=== PATIENT | female | born 1985 | race Caucasian/White ===

== ENCOUNTER 2022-07-22 13:51 | Outpatient (CLI) | payer BC, SELFPAY ==
--- NOTE | 2022-07-22 | CRLHL7_ITS ---
For Patients: As a result of the Cures Act, medical imaging exams and procedure reports are released immediately into your electronic medical record. You may view this report before your referring provider. If you have questions, please contact your health care provider. INDICATION: Dating and viability. LMP 05/27/2022. COMPARISON: None. TECHNIQUE: Real-time russell-scale imaging of the pelvis was performed. FINDINGS: Sonographic imaging demonstrates a single living intrauterine gestation. The embryo has a regular cardiac rate measuring 152 beats per minute. The embryo`s crown-rump length measurement of 1.1 cm corresponds to a gestational age of 7 weeks 1 day with a sonographic due date of 03/09/2023. There is a normal-appearing yolk sac. The placenta has not yet developed. No evidence of a perigestational hemorrhage. The cervix appears closed. section scar in the lower uterine segment. The right ovary measures 3.7 x 2.1 x 2.7 cm and the left ovary measures 3.5 x 2.2 x 2.5 cm. Corpus luteum in the left ovary. No free fluid in the cul-de-sac. IMPRESSION: 1. Single living intrauterine gestation with crown rump length 1.1 cm which corresponds to a gestational age of 7 weeks 1 day with a sonographic due date of 03/09/2023. 2. The clinical gestational age by LMP is 8 weeks 0 days. Dictated by Mary Fuller MD @ 07/22/2022 8:20:48 PM (Electronically Signed)
== END 2022-07-22 13:52 | disposition home or self-care (01) ==
LOC: US 13:52
PROVIDERS: Visit Provider Advanced Practice Midwife
DX: Z34.91 Encounter for supervision of normal pregnancy, unspecified, first trimester (principal); Z3A.01 Less than 8 weeks gestation of pregnancy
CPT/HCPCS: 76817; 86592; 86703; 86762; 86787; 86803; 86850; 86900; 86901; 87086; 87340

== ENCOUNTER 2022-10-22 12:48 | Outpatient (CLI) | payer BC, SELFPAY ==
--- NOTE | 2022-10-22 13:00 | CRLHL7_ITS ---
For Patients: As a result of the Century Cures Act, medical imaging exams and procedure reports are released immediately into your electronic medical record. You may view this report before your referring provider. If you have questions, please contact your health care provider. INDICATION: Evaluate anatomy. COMPARISON: 07/22/2022 TECHNIQUE: Real time russell scale imaging of the fetus was performed as well as color Doppler analysis of the umbilical vessels. FINDINGS: Sonographic imaging demonstrates a single living intrauterine gestation. Fetus demonstrates a regular cardiac rate of 148 beats per minute. Fetus has a breech position. The placenta lies posteriorly without evidence of placenta previa. The edge of the placenta is located 6.7 cm from the internal cervical os. Amniotic fluid volume appears normal. Single deepest vertical pocket: 4.0 cm. The cervix is closed and measures 4.6 cm in length. The composite ultrasound gestational age is calculated at 20 weeks 4 days with an estimated sonographic due date of 03/07/2023. The estimated weight is 374 grams which lies at the 71st %. The following biometric measurements were obtained: Biparietal diameter: 4.8 cm/20 weeks 3 days 59th% Head circumference: 17.9 cm/20 weeks 2 days 45th% Abdominal circumference: 15.7 cm/20 weeks 6 days 64th% Femur length: 3.4 cm/20 weeks 5 days 58th% The HC/AC ratio measures: 1.14 range (1.07-1.25) On anatomic survey, there is a normal appearance of the cerebral ventricles, cavum septi pellucidi, cisterna magna and cerebellum. The nose, lips, and facial profile appear normal. The cervical, thoracic and lumbar spine are well visualized and appear normal. There incomplete visualization of the four-chamber heart and outflow tracts due to position. The diaphragm and stomach appear normal. The kidneys and bladder also appear normal. There is a normal three-vessel cord and cord insertion site. The four extremities appear normal. IMPRESSION: Concordance of clinical and sonographic dating. Incomplete visualization of the four-chamber heart and outflow tracts. Follow-up recommended. Remainder of the anatomic survey is normal. Dictated by Marek Ventura MD @ 10/22/2022 2:08:37 PM (Electronically Signed)
== END 2022-10-22 12:49 | disposition home or self-care (01) ==
LOC: US 12:50
PROVIDERS: Visit Provider Obstetrics & Gynecology
DX: Z34.92 Encounter for supervision of normal pregnancy, unspecified, second trimester (principal); Z3A.20 20 weeks gestation of pregnancy
CPT/HCPCS: 76805

== ENCOUNTER 2022-11-22 12:59 | Outpatient (CLI) | payer BC, SELFPAY ==
--- NOTE | 2022-11-22 13:00 | CRLHL7_ITS ---
For Patients: As a result of the Century Cures Act, medical imaging exams and procedure reports are released immediately into your electronic medical record. You may view this report before your referring provider. If you have questions, please contact your health care provider. INDICATION: heart view not obtained on anatomy scan. COMPARISON: OB ultrasound 10/22/2022. TECHNIQUE: Ultrasound OB pelvis with real time russell scale imaging and color Doppler analysis. FINDINGS: Sonographic imaging demonstrates a single living intrauterine gestation. The fetus has a regular cardiac rate of 165 beats per minute. The fetus has a cephalic orientation. The placenta lies posteriorly without evidence of placenta previa. Amniotic fluid volume appears normal with single deepest pocket measuring 2.6 cm. The composite ultrasound gestational age is calculated at 25 weeks 3 days with an estimated sonographic due date of 03/04/2023. The estimated weight is 816 grams which lies at the 75th percentile. The following biometric measurements were obtained: Biparietal diameter: 6.20 cm (25 weeks 1 day) (60th percentile) Head circumference: 23.36 cm (25 weeks 3 days) (55th percentile) Abdominal circumference: 21.49 cm (26 weeks 0 days) (79th percentile) Femur length: 4.50 cm (24 weeks 6 days) (42nd percentile) The HC/AC ratio measures: 1.09 (range 1.04-1.22) There is a normal appearance of the four-chamber heart and left and right ventricular outflow tracts on today`s exam. IMPRESSION: 1. Single living intrauterine gestation in cephalic position with heart rate 165 beats per minute. 2. Ultrasound gestational age 25 weeks 3 days with sonographic due date 03/04/2023. This is concordant with the clinical gestational age of 24 weeks 5 days. 3. Normal appearance of the four-chamber heart and left and right ventricular outflow tracts. Dictated by Mary Fuller MD @ 11/22/2022 10:34:14 PM (Electronically Signed)
== END 2022-11-22 13:00 | disposition home or self-care (01) ==
PROVIDERS: Visit Provider Obstetrics & Gynecology
DX: Z34.92 Encounter for supervision of normal pregnancy, unspecified, second trimester (principal); Z3A.25 25 weeks gestation of pregnancy
CPT/HCPCS: 76816

== ENCOUNTER 2022-12-15 14:48 | Outpatient (CLI) | payer BC, SELFPAY | END 2022-12-15 14:49 | disposition home or self-care (01) | LOC: NFLDREF 14:49 | PROVIDERS: Visit Provider Obstetrics & Gynecology | DX: O09.523 Supervision of elderly multigravida, third trimester (principal); O26.899 Other specified pregnancy related conditions, unspecified trimester; Z67.91 Unspecified blood type, Rh negative; Z3A.28 28 weeks gestation of pregnancy | CPT/HCPCS: 85461; 86592; 86850; J2791 ==

== ENCOUNTER 2023-02-09 12:48 | Outpatient (CLI) | payer BC, SELFPAY ==
--- NOTE | 2023-02-09 13:00 | CRLHL7_ITS ---
For Patients: As a result of the Century Cures Act, medical imaging exams and procedure reports are released immediately into your electronic medical record. You may view this report before your referring provider. If you have questions, please contact your health care provider. INDICATION: Third trimester scan, evaluate growth. Check growth, fluid and position. COMPARISON: 11/22/2022 TECHNIQUE: Real time russell scale imaging of the fetus was performed. FINDINGS: Sonographic imaging demonstrates a single living intrauterine gestation. Fetus demonstrates a regular cardiac rate of 129 beats per minute. Fetus has a vertex position. The placenta lies vertex. Amniotic fluid volume appears normal and there is a single deepest vertical pocket: 5.2 cm. SAMSON 13.8 cm. The estimated weight is 3269gm which lies at the 90th %. On the prior OB ultrasound exam dated 11/22/2022 the estimated weight was at the 75th%. BPD 83rd percentile. HC 39th percentile. AC greater than 97th percentile. FL 43rd percentile. The HC/AC ratio measures 0.93 range (0.92-1.05). IMPRESSION: Sonographic gestational age 37 weeks 1 day and sonographic due date of 03/01/2023. Sonographic age is 8 days ahead of the clinical age. Estimated weight 90th percentile. Abdominal circumference greater than 97th percentile. Vertex position. SAMSON 13.8 cm. Dictated by Marek Ventura MD @ 02/10/2023 9:51:04 AM (Electronically Signed)
== END 2023-02-09 12:49 | disposition home or self-care (01) ==
LOC: US 12:48
PROVIDERS: Visit Provider Obstetrics & Gynecology
DX: O09.523 Supervision of elderly multigravida, third trimester (principal); Z3A.37 37 weeks gestation of pregnancy
CPT/HCPCS: 76816; 87081; 87653

== ENCOUNTER 2024-04-03 11:17 | Outpatient (CLI) | payer BC, SELFPAY ==
--- NOTE | 2024-04-03 11:15 | CRLHL7_ITS ---
For Patients: As a result of the Century Cures Act, medical imaging exams and procedure reports are released immediately into your electronic medical record. You may view this report before your referring provider. If you have questions, please contact your health care provider. Indication: dating, viability LMP: 01/28/2024 Technique: Real-time sonographic images of the pelvis were obtained transvaginally using grayscale, color, and Doppler imaging. Comparison: None. Findings: Uterus: Echogenic area is seen at the area of prior section measuring roughly 1.5 x 0.8 x 1.9 centimeter. Gestational sac: Mean sac diameter measures 0.4 centimeter, compatible with an average ultrasound age of 5 weeks 1 day. pole: Not visualized. Yolk sac: Not visualized. heart rate: Not visualized. Right ovary: Size: 2.9 x 2.4 x 2.3 centimeter. Appearance: Normal morphology. No masses. Left ovary: Size: 3.2 x 1.9 x 2.4 centimeter. Appearance: Normal morphology. Hemorrhagic cyst measuring 1.8 x 1.1 x 1.4 centimeter. Bladder: Visualized bladder is normal. Other: No free fluid. Impression: 1. Small hypoechoic structure located within the endometrial canal, consistent with double decidual sac sign. However, no yolk sac or embryo is visualized. of unknown location that is most likely intrauterine. Ectopic , while not excluded, is not likely. Recommend follow-up ultrasound examination in 7-10 days, or as clinically warranted. 2. Echogenic area at the site of prior section measuring roughly 1.5 x 0.8 x 1.9 centimeter. This is nonspecific and may represent scarring. Recommend attention on follow-up. Dictated by Marck Lovett MD @ 04/03/2024 1:28:45 PM (Electronically Signed)
== END 2024-04-03 11:18 | disposition home or self-care (01) ==
LOC: US 11:17
PROVIDERS: Visit Provider Physician Assistant
DX: O20.9 Hemorrhage in early pregnancy, unspecified (principal)
CPT/HCPCS: 76817; 84702; 86850

== ENCOUNTER 2024-04-03 11:53 | Outpatient (CLI) | payer BC, SELFPAY | END 2024-04-03 11:54 | disposition home or self-care (01) | PROVIDERS: Visit Provider Physician Assistant | DX: O20.9 Hemorrhage in early pregnancy, unspecified (principal); O09.521 Supervision of elderly multigravida, first trimester; Z3A.09 9 weeks gestation of pregnancy | CPT/HCPCS: 84702; 86850; J2791 ==

== ENCOUNTER 2024-04-04 08:58 | Emergency (ER) | payer BC, SELFPAY ==
[2024-04-04 09:06] VITALS: BP 118/79; PULSE 70; RESP 18; TEMP 35.8; O2SAT 99; BMI 32.9
[2024-04-04 09:41] VITALS: BP 108/78; PULSE 60; O2SAT 98
[2024-04-04 09:42] VITALS: PULSE 63; O2SAT 97
[2024-04-04 09:45] VITALS: PULSE 56; O2SAT 98
--- NOTE | 2024-04-04 09:58 | ED.GENADULT ---
HPI - General Adult General Chief complaint: Vaginal Bleeding Stated complaint: Heavy bleeding miscarriage Time Seen by Provider: 04/04/24 09:52 History of Present Illness HPI narrative: This 38-year-old female is 9 weeks and is having a miscarriage. She was seen in the OB clinic yesterday and had an ultrasound done. She is aware that a miscarriage is forthcoming. She comes in today because of rather heavy bleeding and some symptoms of lightheadedness. She arrives here with normal vital signs and does not have tachycardia or hypotension. She is Rh negative and did get a dose of RhoGAM yesterday. Related Data Home Medications ?Medication ?Instructions ?Recorded ?Confirmed prenat.vits,balbir,[id number]-[id number] 1 tab PO QDAY 07/22/22 04/13/23 Allergies Allergy/AdvReac Type Severity Reaction Status Date / Time No Known Drug Allergies Allergy Verified 04/04/24 09:13 Review of Systems Status of ROS: Reports: 10 or more systems reviewed and unremarkable except as noted in History and below Narrative: Constitutional: No fevers, no weight gain or loss. Eyes: No discharge. No vision changes. HENT: No congestion, no sore throat, no ear pain. Cardiovascular: No chest pain, no palpitations. Respiratory: No shortness of breath, no wheezes, no cough. Gastrointestinal: No vomiting, no diarrhea. Crampy abdominal pain from miscarriage. Genitourinary: No dysuria, no hematuria. Musculoskeletal: Normal range of motion. Skin: No rashes, no pruritis. Neurological: No dizziness, weakness, sensory change, speech change. Endo/Heme/Allergies: No bruising or bleeding. No polydipsia. Pysch: no suicidality, no anxiety, no insomnia. All other systems reviewed and are negative. [facility] Medical History (Updated 04/04/24 @ 11:42 by Chet Garvin MD) Rh negative status during ?O26.899 - Other specified related conditions, unspecified trimester (ICD-10) ?Z67.91 - Unspecified blood type, rh negative (ICD-10) Anemia ?D64.9 - Anemia, unspecified (ICD-10) bleeding ?O72.1 - Other immediate hemorrhage (ICD-10) Bleeding in early ?O20.9 - Hemorrhage in early , unspecified (ICD-10) Class 1 obesity ?E66.9 - Obesity, unspecified (ICD-10) GERD (gastroesophageal reflux disease) ?K21.9 - Gastro-esophageal reflux disease without esophagitis (ICD-10) Hyperemesis gravidarum ?O21.0 - Mild hyperemesis gravidarum (ICD-10) Cholecystitis ?K81.9 - Cholecystitis, unspecified (ICD-10) Polycystic ovaries ?E28.2 - Polycystic ovarian syndrome (ICD-10) Migraine headache ?G43.909 - Migraine, unspecified, not intractable, without status migrainosus (ICD-10) Menorrhagia with irregular cycle ?N92.1 - Excessive and frequent menstruation with irregular cycle (ICD-10) Irregular menstrual cycle ?N92.6 - Irregular menstruation, unspecified (ICD-10) History of varicella ?Z86.19 - Personal history of other infectious and parasitic diseases (ICD-10) History of spontaneous (12/16/15) ?Z87.59 - Personal history of other complications of , childbirth and the puerperium (ICD-10) Anovulation ?N97.0 - Female infertility associated with anovulation (ICD-10) Surgical History (Updated 03/05/23 @ 12:00 by Jessy Palacios MD) History of laparoscopic cholecystectomy ?Z90.49 - Acquired absence of other specified parts of digestive tract (ICD-10) History of cholecystectomy ?Z90.49 - Acquired absence of other specified parts of digestive tract (ICD-10) Status post repeat low transverse section ?Z98.891 - History of uterine scar from previous surgery (ICD-10) Status post repeat low transverse section (09/2021) ?Z98.891 - History of uterine scar from previous surgery (ICD-10) Status post primary low transverse section ?Z98.891 - History of uterine scar from previous surgery (ICD-10) History of tonsillectomy ?Z90.89 - Acquired absence of other organs (ICD-10) History of third molar tooth extraction ?K08.409 - Partial loss of teeth, unspecified cause, unspecified class (ICD-10) History of dilation and curettage (2015) ?Z98.890 - Other specified postprocedural states (ICD-10) Family History Mother High cholesterol Father High cholesterol Sister Seizure disorder Social History (Updated 04/03/24 @ 13:44 by Jacy Estrada PA-C) Narrative: Nasp-vb-cnzo mom. . Three children Smoking Status: Never smoker Do you use any of these nicotine containing products: None How often do you have a drink containing alcohol: never How often do you have six or more drinks on one occasion: Never AUDIT-C Alcohol total score: 0 Non-prescribed substance use: denies use Little interest or pleasure in doing things: not at all Feeling down, depressed, or hopeless: several days Exam Narrative: Exam Narrative: Constitutional: Well-developed, well-nourished, no acute distress. HEENT: Normocephalic, atraumatic. Neck: Normal range of motion. Nontender. Supple. Heart: Regular. No murmurs. Normal rate. Intact distal pulses. Lungs: Clear to auscultation. No chest discomfort. No wheezes, rhonchi, or rales. Abdomen: Normal bowel sounds. No rebound tenderness. Genitalia: Deferred. Back: No midline tenderness. Normal range of motion. Extremities: Normal range of motion. No injury. Skin: Intact. No rash. Warm. No erythema or pallor. Neurologic: No altered sensation. No weakness. Alert and oriented. Psychiatric: No suicidality. No anxiety or depression. No insomnia. Nursing notes and vitals signs are reviewed. Const: Vital Signs, click to edit/add: Vital Signs - 24 hr 04/04/24 09:06 04/04/24 09:41 04/04/24 09:42 Temperature 96.5 F L Pulse Rate 60 63 Pulse Rate [Right Pulse Oximeter] 70 Respiratory Rate 18 Blood Pressure 108/78 Blood Pressure [Le ft Upper Arm] 118/79 Pulse Oximetry 99 98 97 Oxygen Delivery Me thod Room Air 04/04/24 09:45 04/04/24 10:00 Temperature Pulse Rate 56 L 88 Pulse Rate [Right Pulse Oximeter] Respiratory Rate Blood Pressure Blood Pressure [Le ft Upper Arm] Pulse Oximetry 98 97 Oxygen Delivery Me thod Course Vital Signs Vital signs: Initial Vital Signs Temperature 96.5 F L 04/04/24 09:06 Temperature Source Temporal Artery Scan 04/04/24 09:06 Pulse Rate 70 04/04/24 09:06 Pulse Rhythm Regular 04/04/24 09:06 Respiratory Rate 18 04/04/24 09:06 Blood Pressure 118/79 04/04/24 09:06 Blood Pressure Mean 92 04/04/24 09:06 Blood Pressure Position Supine 04/04/24 09:06 Pulse Oximetry 99 04/04/24 09:06 Oxygen Delivery Method Room Air 04/04/24 09:06 Vital Signs Temperature 96.5 F L 04/04/24 09:06 Pulse Rate 70 04/04/24 09:06 Respiratory Rate 18 04/04/24 09:06 Blood Pressure 118/79 04/04/24 09:06 Pulse Oximetry 99 04/04/24 09:06 Oxygen Delivery Method Room Air 04/04/24 09:06 Temperature 96.5 F L 04/04/24 09:06 Pulse Rate 88 04/04/24 10:00 Respiratory Rate 18 04/04/24 09:06 Blood Pressure 108/78 04/04/24 09:41 Pulse Oximetry 97 04/04/24 10:00 Oxygen Delivery Method Room Air 04/04/24 09:06 Medications Administered Medications: Discontinued Medications Generic Name Dose Route Start Last Admin Trade Name Freq PRN Reason Stop Dose Admin Sodium Chloride 1,000 mls @ 1,000 mls/hr 04/04/24 10:00 04/04/24 11:07 0.9 % Sodium Chloride 1000 Ml IV 04/04/24 10:59 Infused .Q1H NORBERT Infusion Medical Decision Making MDM Narrative Medical decision making narrative: This patient comes in as she is undergoing a miscarriage. She had some feelings of lightheadedness with more active bleeding prior to arrival. She arrives with normal vital signs. She is Rh negative and did have a RhoGAM injection yesterday. An IV was established where she received a L of normal saline. She states that she is feeling much better. Her lab results returned with reassuring findings. In particular her hemoglobin returns at 11.9. She is okay to be discharged home and has ongoing follow-up arrangements with her OBGYN physician. Lab Data Labs: Lab Results 04/04/24 Range/Units 10:15 WBC 9.74 (4.50-11.00) K/uL RBC 4.15 (4.00-5.20) m/uL Hgb 11.9 L (12.0-16.0) gm/dL Hct 36.8 (33.0-51.0) % MCV 89 (80-100) fL MCH 29 (26-34) pg MCHC 32 (32-36) gm/dL RDW Coeff of Sandrine 13.8 (11.5-15.5) % Plt Count 191 (140-440) K/uL Neut % (Auto) 79.0 H (42.0-72.0) % Lymph % (Auto) 14.6 L (20-44) % [place]irie % (Auto) 4.8 (0.0-11.0) % Eos % (Auto) 1.4 (0.0-7.0) % Baso % (Auto) 0.1 (0.0-3.0) % Neut # (Auto) 7.70 H (1.7-7.0) K/uL Lymph # (Auto) 1.40 (0.90-2.90) K/uL [place] # (Auto) 0.50 (0.00-0.90) K/UL Eos # (Auto) 0.14 (0.00-0.50) K/uL Baso # (Auto) 0.01 (0.00-0.30) K/uL Abs Immat Gran (auto) 0.01 (0.00-0.30) K/uL Imm/Tot Granulo (auto) 0.1 % Sodium 137 (135-149) mmol/L Potassium 4.1 (3.6-5.1) mmol/L Chloride 106 (96-114) mmol/L Carbon Dioxide 22 (20-32) mmol/L Anion Gap 9 (7-15) mEq/L BUN 13 (5-24) mg/dL Creatinine 0.7 (0.5-1.5) mg/dL Estimated Creat Clear 91.02 Estimated GFR 114 ml/min Glucose 114 (60-115) mg/dL Calcium 8.7 (8.4-10.6) mg/dL Discharge Plan Discharge Clinical Impression: Miscarriage Patient Disposition: Home, Self-Care Condition: Stable Additional Instructions: Take plenty of fluids and use [id number] medicines as needed and directed. Follow up with OBGYN clinic or return if symptoms are recurrent or worsening. Prescriptions: No Action prenat.vits,balbir,med-kxnj-pmjdo Tablet 1 tab PO QDAY Follow Up/Referrals: Provider,Not a Local [Primary Care Provider] - Stand Alone Forms: [employer] Instructions
[2024-04-04 10:00] VITALS: PULSE 88; O2SAT 97
[2024-04-04] MEDS: 0.9 % SODIUM CHLORIDE 1000 ml 1,000 ML IV (10:10)
[2024-04-04 10:18] LABS: Basophils Absolute Auto 0.01 K/uL (0.00-0.30); Basophils Percent Auto 0.1 % (0.0-3.0); Eosinophils Absolute Auto 0.14 K/uL (0.00-0.50); Eosinophils Percent Auto 1.4 % (0.0-7.0); Hematocrit 36.8 % (33.0-51.0); Hemoglobin* 11.9 gm/dL (12.0-16.0); Immature Granulocytes Abs Auto 0.01 K/uL (0.00-0.30); Immature Granulocytes Pct Auto 0.1 %; Lymphocytes Percent Auto 14.6 % (20-44); Mean Corpuscular HGB Conc 32 gm/dL (32-36); Mean Corpuscular Hemoglobin 29 pg (26-34); Mean Corpuscular Volume 89 fL (80-100); Monocytes Percent Auto 4.8 % (0.0-11.0); Platelet Count* 191 K/uL (140-440); RDW Coefficient of Variation % 13.8 % (11.5-15.5); Red Blood Count 4.15 m/uL (4.00-5.20); White Blood Count* 9.74 K/uL (4.50-11.00)
[2024-04-04 10:25] LABS: Slide Review Reflex No
[2024-04-04 11:18] LABS: Chloride* 106 mmol/L (96-114); Potassium* 4.1 mmol/L (3.6-5.1); Sodium* 137 mmol/L (135-149)
[2024-04-04 11:21] LABS: Anion Gap 9 mEq/L (7-15); Carbon Dioxide* 22 mmol/L (20-32); Creatinine* 0.7 mg/dL (0.5-1.5); Est. Creatinine Clearance* 91.02; Estimated Glomerular Filt Rate 114 ml/min
[2024-04-04 11:22] LABS: Blood Urea Nitrogen* 13 mg/dL (5-24); Calcium* 8.7 mg/dL (8.4-10.6); Glucose* 114 mg/dL (60-115)
== END 2024-04-04 11:57 | disposition home or self-care (01) ==
PROVIDERS: Emergency Provider Emergency Medicine Emergency Medical Services
DX: O03.9 Complete or unspecified spontaneous abortion without complication (principal)
CPT/HCPCS: 36415; 80048; 85025; 99283; 99284; J7030

== ENCOUNTER 2024-04-05 13:52 | Outpatient (CLI) | payer BC, SELFPAY | END 2024-04-05 13:53 | disposition home or self-care (01) | LOC: NFLDREF 04-06 15:01 | PROVIDERS: Visit Provider Physician Assistant | DX: O20.9 Hemorrhage in early pregnancy, unspecified (principal) | CPT/HCPCS: 84702 ==

== ENCOUNTER 2024-04-06 07:58 | Outpatient (CLI) | payer BC, SELFPAY ==
--- NOTE | 2024-04-06 08:00 | CRLHL7_ITS ---
For Patients: As a result of the Century Cures Act, medical imaging exams and procedure reports are released immediately into your electronic medical record. You may view this report before your referring provider. If you have questions, please contact your health care provider. INDICATION: Bleeding in early COMPARISON: 04/03/2024 TECHNIQUE: Mcpherson-scale and color Doppler of the gravid uterus from a transvaginal approach. Mcpherson-scale and color Doppler of the ovaries and adnexa from a transvaginal approach. FINDINGS: Estimated gestational age: 9 weeks 6 days normal uterine size and position. No gestational sac. Thickened heterogeneously hyperechoic endometrium measures 1.6 centimeters. No endometrial mass or vascularity. Avascular blood clot in the lower uterine segment upper endocervical canal that measures 3.9 x 1.8 x 3.2 centimeters. No embryonic or parts identified. The right ovary measures 2.5 x 2.0 x 1.9 centimeters. The left ovary measures 2.5 x 2.1 x 1.5 centimeters. No ovarian cyst or mass. Normal color Doppler flow in both ovaries. No pelvic free fluid. IMPRESSION: Failed 1st trimester with miscarriage in progress. Dictated by Estefany Dillard MD @ 04/06/2024 9:12:57 AM (Electronically Signed)
== END 2024-04-06 07:59 | disposition home or self-care (01) ==
LOC: US 07:59
PROVIDERS: Visit Provider Physician Assistant
DX: O20.9 Hemorrhage in early pregnancy, unspecified (principal); O36.80X0 Pregnancy with inconclusive fetal viability, not applicable or unspecified
CPT/HCPCS: 76817

== ENCOUNTER 2024-04-11 16:08 | Outpatient (CLI) | payer BC, SELFPAY | END 2024-04-11 16:09 | disposition home or self-care (01) | LOC: NFLDREF 04-13 05:50 | PROVIDERS: Visit Provider Obstetrics & Gynecology | DX: O03.9 Complete or unspecified spontaneous abortion without complication (principal) | CPT/HCPCS: 84702 ==

== ENCOUNTER 2024-08-24 07:16 | Outpatient (CLI) | payer BC, SELFPAY ==
--- NOTE | 2024-08-24 07:15 | CRLHL7_ITS ---
For Patients: As a result of the Century Cures Act, medical imaging exams and procedure reports are released immediately into your electronic medical record. You may view this report before your referring provider. If you have questions, please contact your health care provider. INDICATION: 38 year-old female. First trimester scan, establish dates and viability. COMPARISON: None. TECHNIQUE: Real-time russell-scale imaging of the pelvis was performed. FINDINGS: Sonographic imaging demonstrates a single living intrauterine gestation. The embryo demonstrates a regular cardiac rate measuring 114 beats per minute. The embryo`s crown-rump length measurement of 0.3 cm corresponds to a gestational age of 6 weeks 0 days with a sonographic due date of April 19, 2025. There is a normal-appearing yolk sac measuring up to 2.9 mm. There are no gross abnormalities noted within the embryo at this early state of development. The placenta has not yet developed. The gestational sac has a normal appearance. There is a curvilinear hypoechoic collection along the anterolateral margin of the gestational sac potentially subchorionic hemorrhage measuring 2.7 x 0.8 x 1.1 cm. The amount of fluid within the sac appears appropriate for gestational age. The cervix is closed. The myometrium appears normal. The ovaries are of normal size. The right ovary measures 2.7 x 2.5 x 1.8 cm. The left ovary measures 4.6 x 2.0 x 2.1 cm and contains a corpus luteum cyst of measuring 1.6 x 1.4 x 1.9 cm. There are no suspicious fluid collections noted in the cul-de-sac. IMPRESSION: Normal first trimester OB ultrasound exam. Gestational age calculated at 6 weeks 0 days with a sonographic due date of April 19, 2025. The heart rate is somewhat low at 114 beats per minute but this may simply reflect the early stage of and there is presumably a subchorionic hemorrhage (the patient reportedly stated to the construction controller the she had spotting). Consider a short interval follow-up ultrasound to assess for progression or regression of these findings. Dictated by Vic Pan MD @ 08/24/2024 4:15:02 PM (Electronically Signed)
== END 2024-08-24 07:17 | disposition home or self-care (01) ==
LOC: US 07:17
PROVIDERS: Visit Provider Physician Assistant
DX: O20.9 Hemorrhage in early pregnancy, unspecified (principal); O26.891 Other specified pregnancy related conditions, first trimester; Z3A.01 Less than 8 weeks gestation of pregnancy
CPT/HCPCS: 76817; J2791

== ENCOUNTER 2024-08-24 08:46 | Outpatient (CLI) | payer BC, SELFPAY | END 2024-08-24 08:47 | disposition home or self-care (01) | LOC: NFLDREF 08:47 | PROVIDERS: Visit Provider Physician Assistant | DX: O20.9 Hemorrhage in early pregnancy, unspecified (principal); O26.891 Other specified pregnancy related conditions, first trimester; Z67.41 Type O blood, Rh negative; Z3A.01 Less than 8 weeks gestation of pregnancy | CPT/HCPCS: J2791 ==

== ENCOUNTER 2024-08-31 15:45 | Outpatient (CLI) | payer BC, SELFPAY ==
--- NOTE | 2024-08-31 15:45 | CRLHL7_ITS ---
For Patients: As a result of the Century Cures Act, medical imaging exams and procedure reports are released immediately into your electronic medical record. You may view this report before your referring provider. If you have questions, please contact your health care provider. INDICATION: Follow-up viability COMPARISON: None. TECHNIQUE: Real-time russell-scale imaging of the pelvis was performed. FINDINGS: Sonographic imaging demonstrates a single living intrauterine gestation. The embryo demonstrates a regular cardiac rate measuring 144 beats per minute. The embryo`s crown-rump length measurement of 1.3 cm corresponds to a gestational age of 7 weeks 3 days with a sonographic due date of 04/16/2025. There is a normal-appearing yolk sac. There are no gross abnormalities noted within the embryo at this early state of development. The gestational sac has a normal appearance. There is no evidence of a perigestational hemorrhage. The amount of fluid within the sac appears appropriate for gestational age. The cervix is closed. The myometrium appears normal. The ovaries are of normal size. Corpus luteal cyst left ovary. Simple cyst associated with the left ovary is present measuring 1.3 cm. There are no suspicious fluid collections noted in the cul-de-sac. IMPRESSION: Single living intrauterine with sonographic gestational age 7 weeks 3 days and sonographic due date of 04/16/2025. Dictated by Marek Ventura MD @ 08/31/2024 8:27:12 PM (Electronically Signed)
== END 2024-08-31 15:46 | disposition home or self-care (01) ==
LOC: US 15:46
PROVIDERS: Visit Provider Physician Assistant
DX: Z34.91 Encounter for supervision of normal pregnancy, unspecified, first trimester (principal); Z3A.01 Less than 8 weeks gestation of pregnancy
CPT/HCPCS: 76817

== ENCOUNTER 2024-09-03 17:09 | Outpatient (CLI) | payer BC, SELFPAY ==
[2024-09-04 00:21] LABS: Chlamydia DNA Amplified* NOT DETECTED (No Detected); GC DNA Amplified* NOT DETECTED (No Detected)
[2024-09-06 04:38] LABS: HPV Source Cervix; HPV, High Risk by TMA Not Detected
== END 2024-09-03 17:10 | disposition home or self-care (01) ==
PROVIDERS: Visit Provider Physician Assistant
DX: Z34.91 Encounter for supervision of normal pregnancy, unspecified, first trimester (principal); Z12.4 Encounter for screening for malignant neoplasm of cervix; Z3A.01 Less than 8 weeks gestation of pregnancy
CPT/HCPCS: 83021; 83036; 86592; 86703; 86704; 86706; 86762; 86787; 86803; 86850; 86870; 86880; 86900; 86901; 87086; 87340; 87491; 87591; 87624; 87625; 88141; 88142

== ENCOUNTER 2024-11-28 09:16 | Outpatient (CLI) | payer BC, SELFPAY | END 2024-11-28 09:17 | disposition home or self-care (01) | LOC: US 09:16 | PROVIDERS: Visit Provider Obstetrics & Gynecology | DX: O09.522 Supervision of elderly multigravida, second trimester (principal); Z3A.19 19 weeks gestation of pregnancy | CPT/HCPCS: 76811 ==

== ENCOUNTER 2024-12-26 13:36 | Outpatient (CLI) | payer BC, SELFPAY | END 2024-12-26 13:37 | disposition home or self-care (01) | LOC: US 13:37 | PROVIDERS: Visit Provider Obstetrics & Gynecology | DX: Z34.92 Encounter for supervision of normal pregnancy, unspecified, second trimester (principal); Z3A.23 23 weeks gestation of pregnancy | CPT/HCPCS: 76816 ==

== ENCOUNTER 2025-01-25 09:48 | Outpatient (CLI) | payer BC, SELFPAY | END 2025-01-25 09:49 | disposition home or self-care (01) | PROVIDERS: Visit Provider Obstetrics & Gynecology | DX: O99.013 Anemia complicating pregnancy, third trimester (principal); Z3A.28 28 weeks gestation of pregnancy | CPT/HCPCS: 82728; 86592; 86850 ==

== ENCOUNTER 2025-02-01 08:30 | Outpatient (CLI) | payer BC, SELFPAY | END 2025-02-01 08:31 | disposition home or self-care (01) | LOC: NFLDREF 14:15 | PROVIDERS: Visit Provider Obstetrics & Gynecology | DX: R73.09 Other abnormal glucose (principal) | CPT/HCPCS: 82951; 82952 ==

== ENCOUNTER 2025-02-28 11:00 | Outpatient (RCR) | payer BC, SELFPAY ==
--- NOTE | 2025-01-31 14:46 | ONC.NURNOTE ---
Diagnosis: Iron Deficiency Anemia in
--- NOTE | 2025-02-01 11:17 | URNOTE ---
Prior auth is not required for [facility] ([id number]) per website.
[2025-02-14 09:31] VITALS: BP 129/80; PULSE 97; RESP 18; TEMP 36.6; O2SAT 97
[2025-02-14] MEDS: IRON SUCROSE COMPLEX 200 MG in 0.9 % SODIUM CHLORIDE 100 ml 100 ML 440 MG IVPB (10:04)
[2025-02-14] MEDS: SODIUM CHLORIDE 0.9 % (FLUSH) 10 ML SYRINGE IVF (10:22)
[2025-02-14 10:25] VITALS: BP 116/67; PULSE 95; RESP 18; TEMP 36.8; O2SAT 96
[2025-02-19 11:31] VITALS: BP 123/77; PULSE 105; RESP 18; TEMP 35.8; O2SAT 96
[2025-02-19] MEDS: SODIUM CHLORIDE 0.9 % (FLUSH) 10 ML SYRINGE IVF (12:22)
[2025-02-19] MEDS: IRON SUCROSE COMPLEX 200 MG in 0.9 % SODIUM CHLORIDE 100 ml 100 ML 440 MG IVPB (12:22)
[2025-02-19 12:45] VITALS: BP 100/65; PULSE 101; RESP 16; TEMP 36.6; O2SAT 96
[2025-02-19 13:10] VITALS: BP 113/74; PULSE 97; RESP 16; TEMP 36.3; O2SAT 97
[2025-02-22 11:00] VITALS: BP 113/74; PULSE 100; RESP 14; TEMP 36.1; O2SAT 97
[2025-02-22] MEDS: SODIUM CHLORIDE 0.9 % (FLUSH) 10 ML SYRINGE IVF ×2 (11:25→11:44)
[2025-02-22] MEDS: IRON SUCROSE COMPLEX 200 MG in 0.9 % SODIUM CHLORIDE 100 ml 100 ML 440 MG IVPB (11:27)
[2025-02-22 12:15] VITALS: BP 107/71; PULSE 95; RESP 18; O2SAT 96
[2025-02-26 11:05] VITALS: BP 102/66; PULSE 102; RESP 18; TEMP 36.3; O2SAT 96
[2025-02-26] MEDS: IRON SUCROSE COMPLEX 200 MG in 0.9 % SODIUM CHLORIDE 100 ml 100 ML 440 MG IVPB (11:23)
[2025-02-26] MEDS: SODIUM CHLORIDE 0.9 % (FLUSH) 10 ML SYRINGE IVF (11:23)
[2025-02-26 11:46] VITALS: BP 109/68; PULSE 95; RESP 16; TEMP 36.2; O2SAT 94
[2025-02-26 12:15] VITALS: BP 107/69; PULSE 92; RESP 18; O2SAT 96
[2025-02-28 11:03] VITALS: BP 114/75; PULSE 93; RESP 16; TEMP 36.6; O2SAT 97
[2025-02-28] MEDS: IRON SUCROSE COMPLEX 200 MG in 0.9 % SODIUM CHLORIDE 100 ml 100 ML 440 MG IVPB (11:23)
[2025-02-28] MEDS: SODIUM CHLORIDE 0.9 % (FLUSH) 10 ML SYRINGE IVF (11:23)
[2025-02-28 11:42] VITALS: BP 103/65; PULSE 96; RESP 16; TEMP 36.8; O2SAT 95
[2025-02-28 12:10] VITALS: BP 107/68; PULSE 96; RESP 18; O2SAT 96
== END 2025-08-13 23:59 | disposition home or self-care (01) ==
LOC: CCIC 11:00
PROVIDERS: Visit Provider Clinical Nurse Specialist
DX: O99.013 Anemia complicating pregnancy, third trimester (principal); D50.9 Iron deficiency anemia, unspecified
CPT/HCPCS: 96365; J1756; J7050

== ENCOUNTER 2025-03-22 13:55 | Outpatient (CLI) | payer BC, SELFPAY ==
--- NOTE | 2025-03-22 14:00 | CRLHL7_ITS ---
For Patients: As a result of the Cures Act, medical imaging exams and procedure reports are released immediately into your electronic medical record. You may view this report before your referring provider. If you have questions, please contact your health care provider. OBSTETRICAL ULTRASOUND ??? FOLLOW-UP, 03/22/2025 INDICATION: History of macrosomia. Follow-up growth. CLINICAL HISTORY: LMP: 01/28/2024 MAIRA by US: 04/19/2025 Gestational Age: 36 weeks 0 days PREVIOUS ULTRASOUND: 12/25/2024 TECHNIQUE: Real-time russell-scale transabdominal imaging of the fetus was performed. FINDINGS: Fetus: Single Cervix: Not visualized positioning: Vertex Amniotic Fluid: 4.1 cm SDP Placenta technique: Transabdominal Placenta position: Not provided heart rate: 129 bpm BIOMETRY: BPD: 8.4 cm, 33 weeks 6 days, 8% HC: 31.4 cm, 35 weeks 1 day, 8% AC: 34.5 cm, 38 weeks 2 days, >97% FL: 6.0 cm, 31 weeks 0 days, <3% FL/AC Ratio: 17.28% HC/AC ratio: 0.91 EFW: 2768 grams; 6 lbs. 2 oz. age by this ultrasound: 34 weeks 4 days MAIRA by this ultrasound: 04/29/2025 Percentile by MAIRA: 45% COMMENTS: Growth today = 45%, 12/26/2024 = 46.2%, 11/28/2024 = 34.4%. IMPRESSION: 1. Sonographic gestational age 34 weeks 4 days and sonographic due date 04/29/2025. Sonographic age is 10 days behind the clinical age. 2. Estimated weight is 45th percentile. Abdominal circumference is greater than 97th percentile. Femur length is less than 3rd percentile. BPD is 8th percentile. HC is 8th percentile. MAREK DA SILVA M.D. Diagnostic Radiologist [email or web address] Transcribed: 5:[address]/Dictated by: Marek Da Silva MD @ 03/22/2025 3:18:00 PM (Electronically Signed)
== END 2025-03-22 13:56 | disposition home or self-care (01) ==
LOC: US 13:55
PROVIDERS: Visit Provider Obstetrics & Gynecology
DX: O09.523 Supervision of elderly multigravida, third trimester (principal); O36.5930 Maternal care for other known or suspected poor fetal growth, third trimester, not applicable or unspecified; Z3A.36 36 weeks gestation of pregnancy
CPT/HCPCS: 76816; 87081; 87653

== ENCOUNTER 2025-04-09 05:48 | Inpatient (IN) | payer BC, SELFPAY ==
[2025-04-09] VITALS (29 sets, daily range): BP systolic 93–139; BP diastolic 52–85; PULSE 55–95; RESP 16–20; TEMP 36.2–37.1; O2SAT 96–99; BMI 40.9
[2025-04-09] MEDS: LACTATED RINGERS 1000 ML 1,000 ML IV (06:34)
[2025-04-09 06:41] LABS: Hematocrit 36.4 % (33.0-51.0); Hemoglobin* 11.9 gm/dL (12.0-16.0); Immature Granulocytes Abs Auto 0.11 K/uL (0.00-0.30); Immature Granulocytes Pct Auto 1.2 %; Lymphocytes Absolute Auto 2.07 K/uL (0.90-2.90); Mean Corpuscular HGB Conc 33 gm/dL (32-36); Mean Corpuscular Hemoglobin 30 pg (26-34); Mean Corpuscular Volume 92 fL (80-100); RDW Coefficient of Variation % 15.5 % (11.5-15.5); Red Blood Count 3.95 m/uL (4.00-5.20); White Blood Count* 9.04 K/uL (4.50-11.00)
[2025-04-09 06:44] LABS: Slide Review Reflex No
--- NOTE | 2025-04-09 06:51 | W.PM.LDBA ---
Subjective History of Present Illness Time Seen by Provider: 06:51 Date Seen: 04/09/25 Narrative: Patient is being admitted to Labor and Delivery for scheduled delivery. She is a 39 year old at 38.4 weeks gestation. Her full history and physical was dictated by Dr. Burrows on 03/22/25. Please see this for details. Active movement. Denies Ctx, LOF, vaginal bleeding or abnormal vaginal discharge. Specific Issues/Plans Partner: [] H&P: Dr. Burrows on 03/22/25 * Anemia in , with hemoglobin 10.4 on 01/25/2025. Last iron infusion 02/28/25 Last hemoglobin 11.0 on 03/22/2025 # History of x3 - Desires permanent sterilization - Consent: Has [facility], not Medicaid so does not need federal consent signed. - Tentative delivery: 38-39 weeks due CD. Desires April 11 (38w6d) # AMA Genetic screening: Level 2 ultrasound: 11/28/24 with subop views. Repeat 12/26/24, normal: no further workup # history of macrosomia 9# 6oz and 9#2oz Growth at 36 weeks on 03/22/2025 EFW 45%, AC>97%tile # Elevated 1hr GTT: 155 3hr GTT: F 94, 1hr 136, 2hr 167 (H), 3hr 137: NO GDM #Rh negative Bleeding in early , RhoGAM administered 08/24/2024 Positive antibody screen: Anti D from RhoGAM Rhogam at 28 weeks: Not needed. Fetus is Rh Negative per [facility]. Patient declined Rhogam. Imagin. 11/28/24: Soliz intrauterine at 19w 5d gestational age. 2. None of the anomalies commonly detected by ultrasound were evident in the detailed anatomic survey described above, although evaluation of anatomy was suboptimal as noted above. 3. Growth parameters and estimated weight were consistent with appropriate for gestational age pattern of growth. 4. The amniotic fluid volume appeared normal. Cervical Length (mm): 42.5 Vaccinations: Covid: Declined Flu: 09/03/24 Tdap: 02/12/25 RSV: N/A 32 week mental health: 02/21/25 Last pap: 09/03/24 OB - Problem Based A/P Additional Plan (1) AMA (advanced maternal age) multigravida 35+: Status: Acute (2) History of delivery: Status: Acute Plan - Will proceed with proposed plane of repeat CD with bilateral salpingectomy. No additional questions from patient. She has hx of delivery x 3. - Continues to desire permanent sterilization - Hgb 11.9/lse367 - T&S: O negative, negative OB Exam Physical Exam Vital signs: Temp Pulse Resp BP Pulse Ox 98.6 F 82 16 135/70 97 04/09/25 06:19 04/09/25 06:19 04/09/25 06:19 04/09/25 06:19 04/09/25 06:13 Narrative: Physical exam: General: No acute distress Psych: Alert and oriented x3, full affect HEENT: Normocephalic, atraumatic Lungs: Unlabored breathing Neuro: No focal deficit. Mentating appropriately Pelvic exam: Deferred
--- NOTE | 2025-04-09 09:02 | P.ANES_ITS ---
Anesthesia Charges Start Date/Time Anesthesia Start Date: 04/09/25 Anesthesia Start Time: 10:04 Stop Date/Time Anesthesia Stop Date: 04/09/25 Anesthesia Stop Time: 12:01 Coding CPT Codes CPT Codes: ANESTH CS DELIVERY - 18626 ([id number]) P3 - PATIENT W/SEVERE SYS DISEASE, QK - SOUND EFFECTS SUPERVISOR 2-4 CNCRNT ANES PROC, QX - LINUX KERNEL DEVELOPER SVC W/ MD MED DIRECTION
--- NOTE | 2025-04-09 09:02 | W.ANESCHARGE ---
Anesthesia Charges Start Date/Time Anesthesia Start Date: 04/09/25 Anesthesia Start Time: 10:04 Stop Date/Time Anesthesia Stop Date: 04/09/25 Anesthesia Stop Time: 12:01 Coding CPT Codes CPT Codes: ANESTH CS DELIVERY - 05778 ([id number]) P3 - PATIENT W/SEVERE SYS DISEASE, QK - SHINGLER 2-4 CNCRNT ANES PROC, QX - MAJOR ACCOUNT REPRESENTATIVE SVC W/ MD MED DIRECTION
[2025-04-09] MEDS: LACTATED RINGERS 1000 ML 1,000 ML 125 ML IV ×2 (09:53→14:56)
--- NOTE | 2025-04-09 10:24 | P.ANES_ITS ---
Anesthesia Charges Start Date/Time Anesthesia Start Date: 04/09/25 Anesthesia Start Time: 10:04 Stop Date/Time Anesthesia Stop Date: 04/09/25 Anesthesia Stop Time: 12:01 Coding CPT Codes CPT Codes: ANESTH CS DELIVERY - 29604 ([id number]) P3 - PATIENT W/SEVERE SYS DISEASE, QK - BUSINESS CONTINUITY PLANNER 2-4 CNCRNT ANES PROC, QX - NET WEB APPLICATION DEVELOPER SVC W/ MD MED DIRECTION
--- NOTE | 2025-04-09 10:24 | P.NB_ITS ---
Nerve Block Nerve Block Time Seen by Provider: 11:53 Date Seen: 04/09/25 Type of block requested by surgeon for post-operative analgesia: TAP Side: bilateral Time out performed: Yes Verification of patient name: Yes Verification of date of : Yes Site marking: site marked Name of person performing procedure: Khoa Joshi Continuous monitoring Was continuous monitoring of O2 sat, B/P, chief supply chain officer, recorded every 15 minutes?: Yes Procedure Checklist: sterile prep, needles and gloves Ultrasound guided. Images saved: Yes Medications given in 5ml increments after negative aspiration: Marcaine %: 0.25 mL: 30 Needle gauge: 20 and Exparel mL: 10 Needle gauge: 20 Patient tolerated procedure well: Yes Additional comments: Injected in 5ml increments after negative aspiration Block Charges Block Charge (with Pro Fee): TAP Bilateral Use of Ultrasound Machine for Block: Yes- US Guidance/pain block
--- NOTE | 2025-04-09 10:24 | W.ANESCHARGE ---
Anesthesia Charges Start Date/Time Anesthesia Start Date: 04/09/25 Anesthesia Start Time: 10:04 Stop Date/Time Anesthesia Stop Date: 04/09/25 Anesthesia Stop Time: 12:01 Coding CPT Codes CPT Codes: ANESTH CS DELIVERY - 26599 ([id number]) P3 - PATIENT W/SEVERE SYS DISEASE, QK - AUTOMOBILE SEAT COVER INSTALLER 2-4 CNCRNT ANES PROC, QX - POLICE DISTRICT SWITCHBOARD OPERATOR SVC W/ MD MED DIRECTION
--- NOTE | 2025-04-09 11:45 | P.OBPRC_ITS ---
Procedure Time Seen by Provider: 10:00 Date of procedure: 04/09/25 Will [facility] bill your pro fee for this procedure?: Yes Procedure Description: DELIVERY BY SECTION Date of Service: 04/09/2025 Delivery time: 1037 Summary: Admitted for scheduled repeat delivery at 38w4d, Repeat Lower uterine transverse section, bilateral salpingectomy, Pfannenstiel, Closed with sutures, QBL 707 cc, No complications, Findings: severe diastasis recti, 5 cm. Poor fascia tissue which is mostly scar tissue. Omental adhesions to anterior fascia, away from hysterotomy site thus, no lysis of adhesions required. Dense adhesion of the bladder to previous hysterotomy scar. After bladder flap was dissected down, lower uterine segment was very thin. Normal uterus, bilateral ovaries and tubes 7/8, weight 3170 g. Primary Indication: 1. History of previous delivery x 3 Procedures: 1. Lower uterine transverse section 2. Bilateral salpingectomy Specimens Removed: Placenta Bilateral fallopian tubes Surgeon: Lulu Burrows MD Anesthesia: Spinal Report: Prophylactic antibiotic, 2 g of Ancef was given before patient was taken to OR. After arrival to the operating room patient was placed in the supine position with left lateral tilt after administration of spinal anesthesia. She was prepped and draped in the usual sterile manner. Laparotomy A pfannenstiel incision was made through the anterior abdominal wall with #10 scalpel approximately 2 cm above the pubic symphysis. The incision was extended sharply with the #10 scalpel through the subcutaneous tissue to the level of fascia. The fascia was entered sharply with a #10 scalpel (Pfannenstiel) in the midline and extended in semi-elliptical fashion with Min scissor. The underlying muscles were dissected off the overlying fascia by grasping the superior aspect of fascia with two aureliano clamps and blunt dissection was used along the midline. The fascia was further from rectus muscle with Min scissor and/or cautery. In similar fashion, the lower aspect of fascia was also grasped with two Aureliano clamps and both blunt and sharp dissection was used to separate fascia from rectus muscle. lysis of adhesions of fascia off rectus abdominus. The rectus muscles were in the midline bluntly with Purnima's and Metzenbaum. The peritoneum was then entered sharply. The peritoneal incision was then extended superiorly and inferiorly under direct visualization with care being taken to avoid bladder and bowel. dense omental adhesions to anterior fascia but far away from the intended hysterotomy sit. The peritoneal incision was enlarged bluntly by lateral traction from the surgeon's and dyer assistant's hand. Jalen retractor was inserted into the abdomen. Delivery Bladder was moderately adhered to previous scar. A bladder flap was developed by grasping with Eritrean forcep and enter with Metzenbaun scissor. Then sharp and blunt dissection with Metzenbaum scissor and fingers were performed. A low transverse hysterotomy was made then with #10 scalpel and extended laterally and cephalad with fingers in a low transverse fashion with Manu Man technique with care being taken to avoid injury to the fetus. The amniotic cavity (membrane) was then entered with spontaneous rupture of membrane, and the amniotic fluid was noted to be clear, fetus was delivered cephalic. With delivery of the baby, no extension was noted. Placenta was d elivered spontaneously with steady traction on cord and manual separation of placenta from uterine wall. Closure Uterine cavity was cleaned after placental delivery with lap sponge x 2. The hysterotomy was closed in 1 layer with stitches using 0 vicryl with continuous locking stitches. Two [id number] placed at midline due to the fact from thin lower uterine segment. Hemostasis was achieved as needed with electrocautery. The ovaries/tubes/uterine surface were evaluated. They were found to be normal. Attention was then turned towards performing bilateral salpingectomy. Patient again reaffirmed her desire for permanent sterilization. The left fallopian tube was grasped with Babcocks. The left fallopian tube was removed from the broad ligament using the LigaSure dissecting forceps starting at the fimbriated end of the tube. Sequential pedicles were then formed to the level of the cornua. The tube was then removed at the cornua. The right fallopian tube was removed in a similar manner. Excellent hemostasis was noted of all pedicles. Jalen retractor removed and hemostasis was confirmed again. Fascia was closed with running stitches using 0 PDS. Subcutaneous layer was irrigated. Hemostasis was checked for and found to be adequate. The subcutaneous layer was closed with running 2-0 chromic sutures. The skin was closed with 4-0 monocryl subcuticular sutures. The incision was cleaned and covered with a steri-strip and silver dressing. The procedure considered terminate at this time. Debrief patient on surgical finding of adhesions, poor fascial tissue, and diastasis recti. Encourage strict adherence to lifting precaution. Will order abdominal binder. Will reassess diastasis recti at 6 week postop. Intraoperative Complications: None QBL: 707 cc Uterotonics/hemostatic agents: 40u of pitocin, 1g TXA Disposition: The patient tolerated the procedure well. She was recovered in Obstetric PACU for close monitoring in stable condition, with a contracted uterus and normal transvaginal bleeding. The infant was sent to mother?s bedside/PACU. The placenta was not sent to pathology. Debrief with OR team performed and specimen reviewed at the conclusion of the procedure.
[2025-04-09] MEDS: miSOPROStoL 800 MCG/4 TABLET PR (14:52)
[2025-04-09] MEDS: SIMETHICONE 80 MG TAB.CHEW PO (16:13)
[2025-04-09 17:10] LABS: Hemoglobin* 11.3 gm/dL (12.0-16.0)
[2025-04-10 03:27] VITALS: BP 114/67; PULSE 74; RESP 16; TEMP 36.9; O2SAT 95
[2025-04-10 06:16] LABS: Hemoglobin* 10.2 gm/dL (12.0-16.0)
[2025-04-10 08:45] VITALS: BP 111/69; PULSE 80; RESP 16; TEMP 36.8; O2SAT 96
[2025-04-10] MEDS: DOCUSATE SODIUM 100 MG CAPSULE PO (09:04)
[2025-04-10] MEDS: ACETAMINOPHEN 500 MG TABLET 1000 MG PO ×2 (09:04→16:39)
--- NOTE | 2025-04-10 15:48 | PM.OBPNVD1 ---
OB - PN:Subj Subjective Date Seen: 04/10/25 Patient comments OB post-: no complaints, pain well controlled, tolerating diet and flatus present [place] status: bottle (and pumping) and doing well feeding status: expressed and bottle feeding Narrative: Brandie feels well.? Her pain is well controlled with current medications.? She has no new complaints.? Urinary output is adequate and she is voiding without difficulty.? Has a good appetite, is tolerating a general diet, is passing flatus, and has not had a bowel movement.? Has scant amount of rubra lochia.? She is ambulating well.?She is bottle feeding forumla and plans to exlusivly pump and feed. OB - PN: Obj Exam Physical Exam: Vital signs: Temp Pulse Resp BP Pulse Ox O2 Del Method 98.3 F 80 16 111/69 96 Room Air 04/10/25 08:45 04/10/25 08:45 04/10/25 08:45 04/10/25 08:45 04/10/25 08:45 04/10/25 08:45 Narrative: GENERAL APPEARANCE:? normal affect, alert, no distress? MOOD:? appropriate? CHEST:? clear to auscultation and percussion? HEART:? regular rate and rhythm? ABDOMEN:? soft, non-tender the uterine fundus is U/2 and is appropriate for the stage of recovery. Incision dressing clean, dry and intact.? EXTREMITIES:? normal and no edema? OB - PN: Obj Data Labs Labs: Laboratory Results - last 24 hr 04/09/25 04/09/25 04/10/25 06:30 16:26 05:57 Hgb 11.3 L 10.2 L RPR Screen Non Reactive OB - PN: A/P Delivery Assessment and Plan (1) AMA (advanced maternal age) multigravida 35+: Status: Acute (2) Lactating mother: Status: Acute (3) care following delivery: Status: Acute (4) Rh negative status during : Status: Acute Plan day: 1 Plan: routine care Comments: Anticipate discharge tomorrow or the following day per patient preference.
[2025-04-10 16:32] VITALS: BP 116/77; PULSE 69; RESP 16; TEMP 36.5; O2SAT 96
[2025-04-10] MEDS: IBUPROFEN 600 MG TABLET PO (22:12)
[2025-04-11 02:00] VITALS: BP 123/82; PULSE 72; RESP 16; TEMP 36.6; O2SAT 97
[2025-04-11] MEDS: ACETAMINOPHEN 500 MG TABLET 1000 MG PO ×2 (02:07→07:50)
[2025-04-11] MEDS: IBUPROFEN 600 MG TABLET PO (04:58)
[2025-04-11 07:45] VITALS: BP 135/86; PULSE 92; RESP 16; TEMP 36.5; O2SAT 97
[2025-04-11] MEDS: DOCUSATE SODIUM 100 MG CAPSULE PO (07:51)
--- NOTE | 2025-04-11 08:06 | P.DS_ITS ---
DS: Providers Provider Date Seen: 04/11/25 Date of admission: 04/09/25 05:48 Primary care physician: Not a Local Provider Admitting Clinician: Lulu Burrows MD Attending Physician on discharge: Dina CORONA PAPER BAG PRESS OPERATOR Date of Discharge: 04/11/25 DS: Diagnosis Discharge Diagnosis (1) care following delivery: Status: Acute (2) Lactating mother: Status: Acute Exam Narrative: Exam Narrative: GENERAL APPEARANCE:? normal affect, alert, no distress MOOD:? appropriate CHEST:? clear to auscultation HEART:? regular rate and rhythm ABDOMEN:? soft, non-tender the uterine fundus is At Umbilicus, Midline and is appropriate for the stage of recovery. Incision: Surgical dressing clean dry and intact. EXTREMITIES:? normal and mild edema Const: Vital Signs, click to edit/add: Vital Signs - 24 hr 04/10/25 08:45 04/10/25 16:32 04/11/25 02:00 Temperature 98.3 F 97.7 F 98 F Pulse Rate [Pulse Oximeter] 80 69 72 Respiratory Rate 16 16 16 Blood Pressure [Ri ght Arm] 111/69 116/77 123/82 Pulse Oximetry 96 96 97 Oxygen Delivery Me thod Room Air Room Air Room Air OB - DS: Summary Hospital Course Hospital Course: Discharge Subjective? Brandie is a 39 y.o. G 6 P 4024 who was admitted to L & D for scheduled repeat with bilateral salpingectomy.? She had a section that was uncomplicated. The patient feels well.? The pain is well controlled with current medications.? She has no new complaints.? She is bottle feeding and reports things are going well. She plans to pump also when her milk comes in. Encouraged to start stimulating them as soon as possible. the patient has done well.? Vitals have been stable.? She has remained afebrile.? Has a good appetite, is tolerating a general diet.? She is voiding without difficulty.? She is passing gas and has not had a bowel movement.? She is ambulating and denies a ny dizziness.? Has small amount of rubra lochia. Problems:none ?? plan:? Discharge home with baby.? Follow up in 1 week for an incision check and 6 weeks.? Bottlefeeding Hgb 10.2. ? ? Labs WNL or stable with trending? Peripartum Data Infant delivery method: Repeat Section Laceration description: None Episiotomy description: None Procedures: Procedures Operation Date: 04/09/25 09:00 Actual Procedure Side Surgeon p Repeat section with bilateral salpingectomy Not Applicable Lulu Burrows MD Procedures: tubal ligation/salpingectomy complications: none Gender: Male Infant Discharge Plan: Home Status at Discharge Overall status at discharge: patient is progressing back to baseline Time Spent with Patient Time attestation: Total time spent providing and/or coordinating discharge services: Time spent: Less than 30 minutes Discharge Plan Discharge Disposition: Home, Self-Care Date of Admission: 04/09/25 05:48 Attending Provider on Discharge: Karie Noble Primary Care Provider: Provider,Not a Local Condition: Stable Anticipated Discharge Date/Time: 04/11/25 10:00 Discharge Medications: Continued prenat.vits,balbir,pms-lxah-rezne Tablet 1 tab PO QDAY Discontinued calcium carbonate [Tums] 200 mg calcium (500 mg) tablet,chewable 200 mg PO BID Discharge Orders: Discharge Order (Routine); Ordered 04/11/25 Ordered By: Karie Noble Patient Education: OB Over the Counter Medication Information, OB /Bottle Feeding, OB /Breast Feeding Additional Instructions: Discharge instructions were reviewed with the patient including signs and symptoms of infection and home going medications Lifting Restrictions: 20 pounds for 6 weeks No not submerge incision under water X 2 weeks? Nothing vaginally for 6 weeks: no tampons or intercourse Do not drive while taking narcotic pain medication(s) Off Work or School for 8 weeks Symptoms to report to doctor: * Bleeding that saturates more than one pad per hour * Passing clots larger than the size of a golf ball * Pain not relieved by prescribed medication * Fever above 100.4 degrees Fahrenheit * A foul vaginal odor * Difficulty in emotions, mood, and functions * Thoughts of hurting yourself and/or * Painful, reddened area in your breast * Any drainage, redness, or tenderness in your IV/epidural site * Severe headache that doesn't improve after taking medications * Changes in vision, including temporary loss of vision, blurred vision, and/or light sensitivity * Upper abdominal pain (usually under ribs on the right side) * Decrease in urination or painful, frequent urinating * Chest pain * Shortness of breath * Tenderness or pain with redness and/swelling in the calf(s) of your leg 1-week visit: incision check, discuss infant feeding concerns, review control options and screen for anxiety/depression. 6-week visit for an annual exam. consultation services are available to all mothers and babies for the first year after delivery.? To make an appointment, please call [phone]. Activity Level: No strenuous activity and Light activity Discharge Diet: Regular Follow Up Appointments: [facility] [Provider Group] Forms: [employer] Info Instructions
== END 2025-04-11 10:20 | disposition home or self-care (01) | DRG 540 ==
PROVIDERS: Obstetrics & Gynecology; Admitting Provider Obstetrics & Gynecology; Visit Provider Obstetrics & Gynecology
PROC: 10D00Z1 Extraction of Products of Conception, Low, Open Approach (ICD-10-PCS; CPT 59514; principal; 2025-04-09 09:00)
DX: O34.211 Maternal care for low transverse scar from previous cesarean delivery (principal); G89.18 Other acute postprocedural pain; O99.02 Anemia complicating childbirth; D64.9 Anemia, unspecified; O26.893 Other specified pregnancy related conditions, third trimester; Z67.41 Type O blood, Rh negative; Z30.2 Encounter for sterilization; Z37.0 Single live birth; Z3A.38 38 weeks gestation of pregnancy
CPT/HCPCS: 01961; 36415; 64488; 76942; 85018; 85025; 85461; 86592; 86850; 86900; 86901; A4314; A9270; J0665; J0666; J1100; J1885; J2405; J2590; J7120

== ENCOUNTER 2025-04-27 14:06 | Inpatient (IN) | payer BC, SELFPAY ==
[2025-04-27] VITALS (31 sets, daily range): BP systolic 113–149; BP diastolic 66–106; PULSE 51–98; RESP 16–18; TEMP 36.7–37; O2SAT 16–97; BMI 35.4
--- OUTSIDE RECORDS SUMMARY | 2025-04-27 14:08 | XMS_ITS ---
Author Organization [facility] Source Produ ction (ClinicalSummary Clone) Address Unknown Care Team Providers Care Wearing Apparel Shaker Name Role Phone Unavailable Primary Care Physician Unavailab le Results * [[facility]] ANEUPLOIDY NIPT Performed by: [email or web address] Component Value Range Date Fraction 7.9% 10/09/2024 04 :17 pm UTC Sex Chromosome Aneuploidy NOT DETECTED 04:17 pm UTC Monosomy X LOW RISK <1 in 10,000 2023 04:17 pm UTC Trisomy 13 LOW RISK <1 in 10,000 2023 04:17 pm UTC Trisomy 18 LOW RISK <1 in 10,000 2023 04:17 pm UTC Trisomy 21 LOW RISK <1 in 10,000 2023 04:17 pm UTC Sex MALE 10/09/2024 04:1 7 pm UTC Gestation ROMAN 10/09/20 24 04:17 pm UTC For detailed report, see PDF See PDF 10/09/2024 04:17 pm UTC 10/09/2024 04:1 7 pm UTC Social History Observation Value Start Date End Date
--- OUTSIDE RECORDS SUMMARY | 2025-04-27 14:08 | XMS_ITS ---
Author Organization [facility] Source Produ ction (ClinicalSummary Clone) Address Unknown Care Team Providers Care Sports Cartoonist Name Role Phone Unavailable Primary Care Physician Unavailab le Results * [[facility]] ANEUPLOIDY NIPT Performed by: [email or web address] Component Value Range Date Fraction 7.9% 10/25/2024 04 :55 pm UTC Rh(D) NIPT RhD NOT DETECTED 10/25/2024 04:55 pm UTC Sex Chromosome Aneuploidy NOT DETECTED 04:55 pm UTC Monosomy X LOW RISK <1 in 10,000 2024 04:55 pm UTC Trisomy 13 LOW RISK <1 in 10,000 2024 04:55 pm UTC Trisomy 18 LOW RISK <1 in 10,000 2024 04:55 pm UTC Trisomy 21 LOW RISK <1 in 10,000 2024 04:55 pm UTC Sex MALE 10/25/2024 04:5 5 pm UTC Gestation ROMAN 10/25/19 04:55 pm UTC This result reflects an amended result REVISED REPORT to include Rh(D) NIPT. 10/25/2024 04:55 pm UTC For detailed report, see PDF See PDF 10/25/2024 04:55 pm UTC 10/25/2024 04:5 5 pm UTC Social History Observation Value Start Date End Date
--- NOTE | 2025-04-27 14:37 | CRLHL7_ITS ---
For Patients: As a result of the Century Cures Act, medical imaging exams and procedure reports are released immediately into your electronic medical record. You may view this report before your referring provider. If you have questions, please contact your health care provider. CLINICAL HISTORY: Increased bleeding after performed 04/09/2025 TECHNIQUE: Real time, russell scale images were acquired of the pelvis using a transabdominal and transvaginal approach. Color Doppler analysis was performed of the ovaries. FINDINGS: uterus measuring 15.7 x 5.7 x 7 centimeters the endometrium measures 8 millimeters. The endocervical canal is distended with heterogeneous complex fluid. No vascularity seen on color Doppler this probably represents hemorrhage. Left ovary appears unremarkable measuring 3.3 x 2.1 x 1.9 centimeters. Blood flow poorly documented ovary is not seen. Right no free fluid is visualized. IMPRESSION: uterus. Endocervical canal is distended with heterogeneous complex fluid without vascularity likely reflecting hemorrhage. This measures approximately 8.4 x 4.2 x 6.3 centimeters. Endometrium measures 8 millimeters. No free fluid in the pelvis. Dictated by Monae Ward MD @ 04/27/2025 4:22:28 PM (Electronically Signed)
--- NOTE | 2025-04-27 14:38 | ED.PREGNANCY ---
HPI - General Time Seen by Provider: 14:38 Date Seen: 04/27/25 Chief complaint: Vaginal Bleeding Stated complaint: Post bleeding, cramping, radiating pain Time Seen by Provider: 04/27/25 14:33 Source: patient and RN notes reviewed Mode of arrival: ambulatory Limitations: no limitations History of Present Illness HPI Narrative: This 39-year-old female is coming in with concern of onset of increased vaginal bleeding and cramping starting yesterday. She delivered her 4th via on April 09. She has had some normal lochia up until yesterday. She has been changing her pad about every 90 minutes, feels like she is just having significant bleeding. She is having significant lower abdominal pain, states it almost feels like contractions. She has not noted any fevers or chills, has not felt flu tyrone or ill. She denies any complications of preeclampsia or anything with the . She is pumping breast milk. MD Complaint: abdominal pain and vaginal bleeding Related Data Home Medications ?Medication ?Instructions ?Recorded ?Confirmed prenat.vits,balbir,[id number] 1 tab PO QDAY 07/22/22 04/27/25 Allergies Allergy/AdvReac Type Severity Reaction Status Date / Time No Known Drug Allergies Allergy Verified 04/27/25 14:24 Review of Systems Status of ROS: Reports: 6 or more systems reviewed and unremarkable except as noted in History and below [facility] Medical History Abnormal glucose ?R73.09 - Other abnormal glucose (ICD-10) , location unknown ?O36.80X0 - with inconclusive viability, not applicable or unspecified (ICD-10) Rh negative status during ?O26.899 - Other specified related conditions, unspecified trimester (ICD-10) ?Z67.91 - Unspecified blood type, rh negative (ICD-10) Anemia ?D64.9 - Anemia, unspecified (ICD-10) bleeding ?O72.1 - Other immediate hemorrhage (ICD-10) Class 1 obesity ?E66.9 - Obesity, unspecified (ICD-10) GERD (gastroesophageal reflux disease) ?K21.9 - Gastro-esophageal reflux disease without esophagitis (ICD-10) Hyperemesis gravidarum ?O21.0 - Mild hyperemesis gravidarum (ICD-10) Cholecystitis ?K81.9 - Cholecystitis, unspecified (ICD-10) Polycystic ovaries ?E28.2 - Polycystic ovarian syndrome (ICD-10) Migraine headache ?G43.909 - Migraine, unspecified, not intractable, without status migrainosus (ICD-10) Menorrhagia with irregular cycle ?N92.1 - Excessive and frequent menstruation with irregular cycle (ICD-10) Irregular menstrual cycle ?N92.6 - Irregular menstruation, unspecified (ICD-10) History of varicella ?Z86.19 - Personal history of other infectious and parasitic diseases (ICD-10) History of spontaneous (12/16/15) ?Z87.59 - Personal history of other complications of , childbirth and the puerperium (ICD-10) Anovulation ?N97.0 - Female infertility associated with anovulation (ICD-10) Surgical History History of delivery ?Z98.891 - History of uterine scar from previous surgery (ICD-10) History of laparoscopic cholecystectomy ?Z90.49 - Acquired absence of other specified parts of digestive tract (ICD-10) History of cholecystectomy ?Z90.49 - Acquired absence of other specified parts of digestive tract (ICD-10) Status post repeat low transverse section ?Z98.891 - History of uterine scar from previous surgery (ICD-10) Status post repeat low transverse section (09/2021) ?Z98.891 - History of uterine scar from previous surgery (ICD-10) Status post primary low transverse section ?Z98.891 - History of uterine scar from previous surgery (ICD-10) History of tonsillectomy ?Z90.89 - Acquired absence of other organs (ICD-10) History of third molar tooth extraction ?K08.409 - Partial loss of teeth, unspecified cause, unspecified class (ICD-10) History of dilation and curettage (2015) ?Z98.890 - Other specified postprocedural states (ICD-10) Family History Mother High cholesterol Father High cholesterol Sister Seizure disorder Social History Narrative: Occupation: [employer]. Marital status: . Orthodoxy/cultural needs: no. Chemical or radiation exposure: no. Pre- tobacco use: no. Pre- alcohol use: no. Current tobacco use: no. Current alcohol use: no. Recreational drug use: no. Dietary restrictions: no. Blood transfusion acceptable in an emergency: yes. PSYCHOSOCIAL HISTORY: History of depression or currently depressed: no. Current or past physical, emotional, or sexual mistreatment: no. Problems that will make it hard to make it to appointments: no What is your current living situation?: I presently have a place to live Problems where you live: no known problems In the past 12 months, utilities in danger of being shut off: no In past 12 months, lack of transportation kept you from medical appts, meetings, work, or getting things needed for daily living: no In the past 12 mos, have been you worried that your food would run out before you had money to buy more?: never true In the past 12 mos, the food you bought just didn't last and you didn't have money to buy more?: never true Smoking Status: Never smoker Do you use any of these nicotine containing products: None How often do you have a drink containing alcohol: never How often do you have six or more drinks on one occasion: Never AUDIT-C Alcohol total score: 0 Non-prescribed substance use: denies use How often does anyone, including family, friends and others, physically hurt you: never How often does anyone, including family, friends and others, insult or talk down to you: never How often does anyone, including family, friends and others, threaten you with harm: never How often does anyone, including family, friends and others, scream or curse at you: never Exam Const: Vital Signs, click to edit/add: Vital Signs - 24 hr 04/27/25 14:18 04/27/25 15:43 04/27/25 15:44 Temperature 98.6 F Pulse Rate 59 L 51 L Pulse Rate [Right Pulse Oximeter] 76 Respiratory Rate 18 Blood Pressure 143/92 H Blood Pressure [Ri ght Upper Arm] 145/84 H Pulse Oximetry 97 97 96 Oxygen Delivery Me thod Room Air 07/19/25 15:45 04/27/25 15:47 04/27/25 16:00 Temperature Pulse Rate 55 L 57 L 60 Pulse Rate [Right Pulse Oximeter] Respiratory Rate Blood Pressure 145/81 H Blood Pressure [Ri ght Upper Arm] Pulse Oximetry 96 96 95 Oxygen Delivery Me thod 04/27/25 16:02 04/27/25 16:15 04/27/25 16:17 Temperature Pulse Rate 60 60 63 Pulse Rate [Right Pulse Oximeter] Respiratory Rate Blood Pressure 144/94 H 145/95 H Blood Pressure [Ri ght Upper Arm] Pulse Oximetry 95 96 97 Oxygen Delivery Me thod 04/27/25 16:18 04/27/25 16:30 04/27/25 16:32 Temperature Pulse Rate 60 68 65 Pulse Rate [Right Pulse Oximeter] Respiratory Rate Blood Pressure 134/106 H Blood Pressure [Ri ght Upper Arm] Pulse Oximetry 96 95 96 Oxygen Delivery Me thod 04/27/25 16:33 04/27/25 17:20 04/27/25 17:21 Temperature Pulse Rate 81 56 L 61 Pulse Rate [Right Pulse Oximeter] Respiratory Rate Blood Pressure 144/95 H Blood Pressure [Ri ght Upper Arm] Pulse Oximetry 96 97 96 Oxygen Delivery Me thod 04/27/25 17:22 04/27/25 17:30 04/27/25 17:32 Temperature Pulse Rate 62 70 72 Pulse Rate [Right Pulse Oximeter] Respiratory Rate Blood Pressure 138/92 H 130/89 Blood Pressure [Ri ght Upper Arm] Pulse Oximetry 96 96 96 Oxygen Delivery Me thod 04/27/25 17:45 04/27/25 17:46 Temperature Pulse Rate 80 80 Pulse Rate [Right Pulse Oximeter] Respiratory Rate Blood Pressure 139/95 H Blood Pressure [Ri ght Upper Arm] Pulse Oximetry 96 96 Oxygen Delivery Me thod This 39-year-old female is alert, interactive, no apparent distress. Sclera clear, face atraumatic, able to speak in complete sentences. Lungs are clear, good air entry, no wheeze no crackles, tachypnea, accessory muscle use. CV regular rate and rhythm, no murmur, normal S1-S2, no S3-S4. Abdomen is soft, mild tenderness in the suprapubic area overlying the uterus, slight guarding but no rebound. Otherwise there are no masses elsewhere, note, no rebound or guarding. Documenting provider has reviewed patient's vital signs: yes Course Course ED Course: Patient understands that I will be ordering an ultrasound, this will help make sure that we do not see retained products of conception, any other pathology. Blood pressure is just mildly elevated, will need to look back at prior values but she has not had a history of preeclampsia before. Will give full complement of labs. She is hemodynamically stable and does not seem symptomatic from blood less at this point. We will place an IV and be ready to intervene if needed however. Consultations Consultation #1: Did give Dr. Contreras a call on this patient. She agrees with the labs and the ultrasound. Agrees that retained products of conception less likely with a repeat . Atypical presentation of preeclampsia, endometritis are all considerations and will be further evaluated with labs and the ultrasound. I will contact her back will once all of the workup is complete. Patient is currently hemodynamically stable. 3:38 p.m.: Did update Dr. Contreras on the preliminary ultrasound findings. Will await Radiology over-read. Patient did last eat around 9:30 a.m., did confirm this with her. She understands to be NPO. There does seem to be some retained products in the lower uterine segment but we are waiting radiology over read. We need some further blood pressure monitoring, patient's creatinine today is 1.1 which is an estimated creatinine clearance of 57.36. Her last creatinine from last year was 0.7. 4:24 p.m.: Have updated Dr. Contreras on ultrasound report. She plans on doing this in the OR in case there are complications with bleeding. I have updated the rooming house inspector to call in OR team. She will be in to talk to the patient, will talk to patient about her blood pressure as well too. Time: 14:57 Vital Signs Vital signs: Initial Vital Signs Temperature 98.6 F 04/27/25 14:18 Temperature Source Temporal Artery Scan 04/27/25 14:18 Pulse Rate 76 04/27/25 14:18 Pulse Rhythm Regular 04/27/25 14:18 Pulse Strength 3+ Normal 04/27/25 14:18 Respiratory Rate 18 04/27/25 14:18 Blood Pressure 145/84 H 04/27/25 14:18 Blood Pressure Mean 104 04/27/25 14:18 Blood Pressure Position Sitting 04/27/25 14:18 Pulse Oximetry 97 04/27/25 14:18 Oxygen Delivery Method Room Air 04/27/25 14:18 Vital Signs Temperature 98.6 F 04/27/25 14:18 Pulse Rate 76 04/27/25 14:18 Respiratory Rate 18 04/27/25 14:18 Blood Pressure 145/84 H 04/27/25 14:18 Pulse Oximetry 97 04/27/25 14:18 Oxygen Delivery Method Room Air 04/27/25 14:18 Temperature 98.6 F 04/27/25 14:18 Pulse Rate 80 04/27/25 17:46 Respiratory Rate 18 04/27/25 14:18 Blood Pressure 139/95 H 04/27/25 17:46 Pulse Oximetry 96 04/27/25 17:46 Oxygen Delivery Method Room Air 04/27/25 14:18 Medications Administered Medications: Generic Name Dose Route Start Last Admin Trade Name Freq PRN Reason Stop Dose Admin Magnesium Sulfate 40 gm in 1,000 mls @ 25 mls/hr 04/27/25 17:00 04/27/25 17:47 Magnesium Infusion IVPB 1 gm/hr .Q24H NORBERT 25 mls/hr 1 GM/HR Administration Lactated Ringer's 1,000 mls @ 100 mls/hr 04/27/25 17:10 04/27/25 17:11 Lactated Ringers 1000 Ml IV 100 mls/hr .Q10H NORBERT Administration Discontinued Medications Generic Name Dose Route Start Last Admin Trade Name Freq PRN Reason Stop Dose Admin Doxycycline Hyclate 200 mg 04/27/25 16:56 04/27/25 17:07 Doxycycline Hyclate 100 Mg PO 04/27/25 16:57 200 mg ONCE ONE Administration Magnesium Sulfate 4 gm in 100 mls @ 200 mls/hr 04/27/25 16:55 04/27/25 17:15 Magnesium Iv IVPB 04/27/25 17:24 200 mls/hr ONCE ONE Administration MDM - OB/Uterine Contractions Lab Data Attestation: I reviewed the patient's lab results. Labs: Lab Results 04/27/25 Range/Units 14:50 WBC 9.53 (4.50-11.00) K/uL RBC 4.05 (4.00-5.20) m/uL Hgb 12.0 (12.0-16.0) gm/dL Hct 37.5 (33.0-51.0) % MCV 93 (80-100) fL MCH 30 (26-34) pg MCHC 32 (32-36) gm/dL RDW Coeff of Sandrine 14.0 (11.5-15.5) % Plt Count 220 (140-440) K/uL Neut % (Auto) 71.6 (42.0-72.0) % Lymph % (Auto) 18.2 L (20-44) % Traill % (Auto) 6.6 (0.0-11.0) % Eos % (Auto) 2.6 (0.0-7.0) % Baso % (Auto) 0.2 (0.0-3.0) % Neut # (Auto) 6.82 (1.7-7.0) K/uL Lymph # (Auto) 1.70 (0.90-2.90) K/uL Traill # (Auto) 0.60 (0.00-0.90) K/UL Eos # (Auto) 0.25 (0.00-0.50) K/uL Baso # (Auto) 0.02 (0.00-0.30) K/uL Abs Immat Gran (auto) 0.08 (0.00-0.30) K/uL Imm/Tot Granulo (auto) 0.8 % Sodium 141 (135-149) mmol/L Potassium 4.0 (3.6-5.1) mmol/L Chloride 110 (96-114) mmol/L Carbon Dioxide 25 (20-32) mmol/L Anion Gap 6 L (7-15) mEq/L BUN 10 (5-24) mg/dL Creatinine 1.1 (0.5-1.5) mg/dL Estimated Creat Clear 57.36 Estimated GFR 66 ml/min Glucose 90 (60-115) mg/dL Lactate 0.9 (0.5-1.9) mmol/L Calcium 8.5 (8.4-10.6) mg/dL Total Bilirubin 0.3 (0.1-1.5) mg/dL AST 22 (12-35) U/L ALT 21 (4-35) U/L Alkaline Phosphatase 108 (40-150) U/L C-Reactive Protein 0.8 (0.5-1.0) mg/dL Total Protein 6.8 (6.0-8.3) g/dL Albumin 4.0 (3.3-5.0) g/dL Procalcitonin < 0.03 L (<0.50) ng/mL Imaging Data US pelvis: Attestation: I have reviewed the pertinent imaging results. Radiologist's impression: [facility] Facility:?[facility] Patient ID:?[id number] Site Patient ID:?[id number]. Site :?[id number] Study:?US-Pelvis -04/27/2025 3:36:16 PM Ordering Physician:Guilherme Sarmiento Final Report: CLINICAL HISTORY: Increased bleeding after performed 04/09/2025 TECHNIQUE: Real time, russell scale images were acquired of the pelvis using a transabdominal and transvaginal approach. Color Doppler analysis was performed of the ovaries. FINDINGS: uterus measuring 15.7 x 5.7 x 7 centimeters the endometrium measures 8 millimeters. The endocervical canal is distended with heterogeneous complex fluid. No vascularity seen on color Doppler this probably represents hemorrhage. Left ovary appears unremarkable measuring 3.3 x 2.1 x 1.9 centimeters. Blood flow poorly documented ovary is not seen. Right no free fluid is visualized. IMPRESSION: uterus. Endocervical canal is distended with heterogeneous complex fluid without vascularity likely reflecting hemorrhage. This measures approximately 8.4 x 4.2 x 6.3 centimeters. Endometrium measures 8 millimeters. No free fluid in the pelvis. Dictated by Monae Ward MD @ 04/27/2025 4:22:28 PM (Electronic Signature) Discharge Plan Discharge Clinical Impression: bleeding Qualifiers: hemorrhage type: unspecified Qualified Code(s): O72.1 - Other immediate hemorrhage Patient Disposition: XFER to OR Condition: Stable
[2025-04-27 14:57] LABS: Lactate* 0.9 mmol/L (0.5-1.9)
[2025-04-27 15:05] LABS: Hematocrit 37.5 % (33.0-51.0); Hemoglobin* 12.0 gm/dL (12.0-16.0); Immature Granulocytes Abs Auto 0.08 K/uL (0.00-0.30); Immature Granulocytes Pct Auto 0.8 %; Mean Corpuscular HGB Conc 32 gm/dL (32-36); Mean Corpuscular Hemoglobin 30 pg (26-34); Mean Corpuscular Volume 93 fL (80-100); RDW Coefficient of Variation % 14.0 % (11.5-15.5); Red Blood Count 4.05 m/uL (4.00-5.20); White Blood Count* 9.53 K/uL (4.50-11.00)
[2025-04-27 15:11] LABS: Lymphocytes Absolute Auto 1.70 K/uL (0.90-2.90); Slide Review Reflex No
[2025-04-27 15:20] LABS: Albumin* 4.0 g/dL (3.3-5.0); Chloride* 110 mmol/L (96-114); Sodium* 141 mmol/L (135-149)
[2025-04-27 15:21] LABS: Potassium* 4.0 mmol/L (3.6-5.1)
[2025-04-27 15:23] LABS: Blood Urea Nitrogen* 10 mg/dL (5-24); Creatinine* 1.1 mg/dL (0.5-1.5); Est. Creatinine Clearance* 57.36; Estimated Glomerular Filt Rate 66 ml/min
[2025-04-27 15:24] LABS: Alanine Aminotransferase* 21 U/L (4-35); Alkaline Phosphatase* 108 U/L (40-150); Anion Gap 6 mEq/L (7-15); Aspartate Amino Transferase* 22 U/L (12-35); Bilirubin Total* 0.3 mg/dL (0.1-1.5); Calcium* 8.5 mg/dL (8.4-10.6); Carbon Dioxide* 25 mmol/L (20-32); Glucose* 90 mg/dL (60-115); Total Protein* 6.8 g/dL (6.0-8.3)
[2025-04-27 15:53] LABS: Procalcitonin* < 0.03 ng/mL (<0.50)
--- NOTE | 2025-04-27 17:04 | PM.OBCN1 ---
OB - CN: HPI Date of Consult Time Seen by Provider: 17:05 Date Seen: 04/27/25 Patient: [facility] Patient Consult date: 04/27/25 Primary Care Provider: Not a Local Provider Consult Narrative Narrative: Brandie is a 39-year-old who is status post repeat delivery and bilateral salpingectomy on 04/09/2025. Her surgery was uncomplicated, aside from what of moderate adhesive disease and thin lower uterine segment. She was discharged home on postop day 2 following an uncomplicated hospitalization. was complicated by history of x3, AMA and anemia. Brandie noted small volume lochia throughout her period. Starting about 24 hours ago, she describes a significant increase in her bleeding where she was essentially soaking a pad nearly every 90 minutes. She notes associated pain and cramping with this. She was in her normal state of health prior to onset of bleeding - denies any worsening abdominal/pelvic pain (aside from cramping that started with bleeding), fevers/chills, nausea/vomiting nor abnormal vaginal discharge. On arrival, VS are within normal limits aside from HTN. Hemoglobin is 12 (from 10.2 on 04/10). She has no leukocytosis, nor elevated CRP or procalcitonin to suggest infection. In addition, she was noted to have new elevated BPs since presentation. She had absolutely no elevated BPs throughout her nor delivery hospitalization. Denies headache, vision changes or RUQ pain. PreE labs in ED demonstrate platelets of 220, Cr 1.1, AST 22 and ALT of 21. History History 6 Elective abortions 0 Para 3 Spontaneous abortions 2 Hx # Term Pregnancies 3 Ectopic pregnancies 0 Hx # Pregnancies 0 Multiple births 0 Number of Living Children 3 Past Pregnancies Del. Date GA/Weeks Outcome Route wt Inf Gender Labor Lgth Anesthesia Location Provider Elizabethi 12/22/15 7 spontaneous Anum 10/06/18 40 live - full term low transverse 9 lb 6 oz Male 13hrs epidural Dr. Rowan 09/09/21 39 live - full term low transverse 8 lb Female none spinal Dr. Pierre 03/04/23 39 live - full term low transverse 9 lb 2 oz Female none spinal Vu 04/03/24 9 spontaneous Delivery Date: 12/22/15 Last Updated by: Nancy Sierra ~ FANCY WIRE DRAWER, FANCY WIRE DRAWER D&C Delivery Date: 10/06/18 Last Updated by: Ramona M Malena ~ [employer]ALITY CONTROL EXPERT, QUALITY CONTROL EXPERT baby's heart rate was diminishing PFSH [facility] Medical History Abnormal glucose ?R73.09 - Other abnormal glucose (ICD-10) , location unknown ?O36.80X0 - with inconclusive viability, not applicable or unspecified (ICD-10) Rh negative status during ?O26.899 - Other specified related conditions, unspecified trimester (ICD-10) ?Z67.91 - Unspecified blood type, rh negative (ICD-10) Anemia ?D64.9 - Anemia, unspecified (ICD-10) bleeding ?O72.1 - Other immediate hemorrhage (ICD-10) Class 1 obesity ?E66.9 - Obesity, unspecified (ICD-10) GERD (gastroesophageal reflux disease) ?K21.9 - Gastro-esophageal reflux disease without esophagitis (ICD-10) Hyperemesis gravidarum ?O21.0 - Mild hyperemesis gravidarum (ICD-10) Cholecystitis ?K81.9 - Cholecystitis, unspecified (ICD-10) Polycystic ovaries ?E28.2 - Polycystic ovarian syndrome (ICD-10) Migraine headache ?G43.909 - Migraine, unspecified, not intractable, without status migrainosus (ICD-10) Menorrhagia with irregular cycle ?N92.1 - Excessive and frequent menstruation with irregular cycle (ICD-10) Irregular menstrual cycle ?N92.6 - Irregular menstruation, unspecified (ICD-10) History of varicella ?Z86.19 - Personal history of other infectious and parasitic diseases (ICD-10) History of spontaneous (12/16/15) ?Z87.59 - Personal history of other complications of , childbirth and the puerperium (ICD-10) Anovulation ?N97.0 - Female infertility associated with anovulation (ICD-10) Surgical History History of delivery ?Z98.891 - History of uterine scar from previous surgery (ICD-10) History of laparoscopic cholecystectomy ?Z90.49 - Acquired absence of other specified parts of digestive tract (ICD-10) History of cholecystectomy ?Z90.49 - Acquired absence of other specified parts of digestive tract (ICD-10) Status post repeat low transverse section ?Z98.891 - History of uterine scar from previous surgery (ICD-10) Status post repeat low transverse section (09/2021) ?Z98.891 - History of uterine scar from previous surgery (ICD-10) Status post primary low transverse section ?Z98.891 - History of uterine scar from previous surgery (ICD-10) History of tonsillectomy ?Z90.89 - Acquired absence of other organs (ICD-10) History of third molar tooth extraction ?K08.409 - Partial loss of teeth, unspecified cause, unspecified class (ICD-10) History of dilation and curettage (2015) ?Z98.890 - Other specified postprocedural states (ICD-10) Family History Mother High cholesterol Father High cholesterol Sister Seizure disorder Social History Narrative: Occupation: [employer] mom. Marital status: . Jain/cultural needs: no. Chemical or radiation exposure: no. Pre- tobacco use: no. Pre- alcohol use: no. Current tobacco use: no. Current alcohol use: no. Recreational drug use: no. Dietary restrictions: no. Blood transfusion acceptable in an emergency: yes. PSYCHOSOCIAL HISTORY: History of depression or currently depressed: no. Current or past physical, emotional, or sexual mistreatment: no. Problems that will make it hard to make it to appointments: no What is your current living situation?: I presently have a place to live Problems where you live: no known problems In the past 12 months, utilities in danger of being shut off: no In past 12 months, lack of transportation kept you from medical appts, meetings, work, or getting things needed for daily living: no In the past 12 mos, have been you worried that your food would run out before you had money to buy more?: never true In the past 12 mos, the food you bought just didn't last and you didn't have money to buy more?: never true Smoking Status: Never smoker Do you use any of these nicotine containing products: None How often do you have a drink containing alcohol: never How often do you have six or more drinks on one occasion: Never AUDIT-C Alcohol total score: 0 Non-prescribed substance use: denies use How often does anyone, including family, friends and others, physically hurt you: never How often does anyone, including family, friends and others, insult or talk down to you: never How often does anyone, including family, friends and others, threaten you with harm: never How often does anyone, including family, friends and others, scream or curse at you: never Meds Home Medications and Allergies Home Medications ?Medication ?Instructions ?Recorded ?Confirmed ?Type prenat.vits,balbir,mrq-zyez-gqapb 1 tab PO QDAY 07/22/22 04/27/25 History Allergies Allergy/AdvReac Type Severity Reaction Status Date / Time No Known Drug Allergies Allergy Verified 04/27/25 14:24 OB - H&P: Exam Physical Exam: Vital signs: Temp Pulse Resp BP Pulse Ox O2 Del Method 98.6 F 65 18 134/106 H 96 Room Air 04/27/25 14:18 04/27/25 16:32 04/27/25 14:18 04/27/25 16:32 04/27/25 16:32 04/27/25 14:18 Narrative: General: Alert and oriented, in no acute distress Psych: Appropriate mood and affect Abdomen: Soft, non-distended. Tenderness to palpation in the suprapubic region. No rebound or guarding. Pelvic US on 04/27: FINDINGS: uterus measuring 15.7 x 5.7 x 7 centimeters the endometrium measures 8 millimeters. The endocervical canal is distended with heterogeneous complex fluid. No vascularity seen on color Doppler this probably represents hemorrhage. Left ovary appears unremarkable measuring 3.3 x 2.1 x 1.9 centimeters. Blood flow poorly documented ovary is not seen. Right no free fluid is visualized. IMPRESSION: uterus. Endocervical canal is distended with heterogeneous complex fluid without vascularity likely reflecting hemorrhage. This measures approximately 8.4 x 4.2 x 6.3 centimeters. Endometrium measures 8 millimeters. No free fluid in the pelvis. OB - Results Labs Labs: Short CBC 04/27/25 Range/Units 14:50 WBC 9.53 (4.50-11.00) K/uL Hgb 12.0 (12.0-16.0) gm/dL Hct 37.5 (33.0-51.0) % Plt Count 220 (140-440) K/uL BMP 04/27/25 14:50 Sodium 141 Potassium 4.0 Chloride 110 Carbon Dioxide 25 BUN 10 Creatinine 1.1 Glucose 90 Calcium 8.5 Liver Function 04/27/25 Range/Units 14:50 Total Bilirubin 0.3 (0.1-1.5) mg/dL AST 22 (12-35) U/L ALT 21 (4-35) U/L Alkaline Phosphatase 108 (40-150) U/L Albumin 4.0 (3.3-5.0) g/dL OB - CN: A/P Assessment and Plan (1) Pre-eclampsia, severe, delivered: Status: Acute (2) hemorrhage, delayed (> 24 hrs): Status: Acute (3) care following delivery: Status: Acute Plan Brandie is a 39yo s/p repeat C/S with bilateral salpingectomy on 04/09/25. was complicated by AMA, anemia, history of C/S x3. Patient presented with new onset heavy vaginal bleeding in the last 24 hours. Hemoglobin stable at 12, VS within normal limits aside from HTN. Pelvic US demonstrates uterus to be 15.7x5.7x7cm in size with 8mm endometriam stripe at the fundus, however the lower uterine segment and cervix is markedly dilated with heterogenous complex fluid likely representing blood products measuring 8.4x4.2x6.3cm. Discussed potential etiologies of delayed PPH, including endometritis, retained POC and subinvolution of the placental bed. Low suspicion for endometritis at this time, as no significant pelvic pain (aside from cramping with bleeding), nausea/vomiting, fevers/chills or abnormal discharge. Labs negative for leukocytosis, elevated CRP or pro-calcitonin. Minimal fundal tenderness on exam. In addition, the US is necessarily consistent with retained POC given thin endometrial stripe at the fundus and no internal vascularity to the blood products. Plan to proceed to suction D&C, plan to send endometrial curettings for pathology. Discussed risks of surgery including bleeding, infection, damage to surrounding structures, perforation and medical complications of surgery including VTE, heart attack and stroke. Patient would consent to blood transfusion if needed. Plan to avoid Methergine if uterotonics are required, but patient is a candidate for Hemabate or TXA. Plan Pitocin infusion to start following D&C. After discussion of risks, benefits alternatives, ring consent was obtained. Recommend doxycycline as perioperative antibiotics. Type and screen added to her ED labs. In addition, explained patient meets criteria for preE with SF given new hypertension and Cr of 1.1. She is asymptomatic - no headaches, vision changes or RUQ pain. Labs are otherwise within normal limits. Plan to start 4g magnesium sulfate bolus then 1g/hour to follow x 24 hours. Plan serial HELLP labs q.6H. Plan to start long-acting blood pressure regimen after OR, likely nifedipine. Admit to Labor and delivery for at least 24 hours in the postoperative period.
[2025-04-27] MEDS: DOXYCYCLINE HYCLATE 100 MG 200 MG PO (17:07)
[2025-04-27] MEDS: LACTATED RINGERS 1000 ML 1,000 ML 100 ML IV (17:11)
[2025-04-27] MEDS: MAGNESIUM IV 4 GM/100 ML PIGGYBACK IVPB (17:15)
[2025-04-27] MEDS: MAGNESIUM Infusion 40 GM/1,000 ML IV.SOLN IVPB (17:47)
[2025-04-27] MEDS: BUPIVACAINE 0.5% 30 ML 20 ML INJECTION (18:17)
[2025-04-27] MEDS: miSOPROStoL 800 MCG/4 TABLET PR (18:29)
--- NOTE | 2025-04-27 18:44 | P.GYNPRC_ITS ---
Procedure Note Time Seen by Provider: 18:44 Date of procedure: 04/27/25 Will [facility] bill your pro fee for this procedure?: Yes Pre-op diagnosis: Delayed hemorrhage Large volume lower uterine segment/endocervical clot Preeclampsia with severe features Procedure: Suction dilation and curettage Anesthesia: MAC Complications: None Surgeon: Cecil Contreras MD Estimated blood loss (mL): 150 (Additional clot noted in specimen container) IV fluids (mL): 800 Urine Output (mL): 350 Pathology: specimen obtained, sent to pathology Condition: stable Disposition: floor Findings: Pre-procedure TAUS: Large volume clot in lower uterine segment/endocervix Bimanual exam with mid to slightly retroverted uterus External genital exam within normal limits Cervix noted to be dilated to 1cm, clot presenting at external os Post-procedure TAUS: Thin, homogenous endometrial stripe with complete evaculation of previous clot Procedure Description: After verifying written informed consent, the patient was taken to the operating room. A time-out was completed to verify correct patient and procedure. Anesthesia was induced and found to be adequate. She was placed in the dorsal lithotomy position in yellow fin stirrups with care taken to avoid neurologic injury. She did receive a preoperative dose of doxycycline per protocol. She was prepared and draped in the usual sterile fashion. A surgical pause was conducted to confirm correct patient and procedure. Bimanual exam was performed as above. Speculum was inserted. The cervix was identified and grasped with a single-tooth tenaculum. A paracervical block was applied with 0.5% bupivicaine was performed, 20cc total. Uterine sound passed to 10.5 without difficulty. Clot presenting at the external canal was grasped with a ring forceps and evacuated across two passes. No dilation was required to accommodate a No. 7 curved curette. The curette was introduced and advanced to the fundus. The intrauterine contents were aspirated, with almost entirely return of blood products. Further clot and possible small volume retained products were grasped as they were presenting again at the endocervix. Another pass with the suction curettage was performed, with minimal return of blood and no apparent tissue. Following this, the sharp curettage was utilized to very gently confirm satisfactory uterine cri in all quadrants. Transabdominal ultrasound was performed documenting a thin, uniform endometrial stripe. Tenaculum was removed from the cervix. Cervix was made hemostatic with silver nitrate. Bimanual exam performed, excellent uterine tone noted. IV pitocin was administered during case and rectal cytotec 800mcg was administered at the completion of case to aid with uterine tone. Repeat speculum exam confirmed excellent hemostasis across extended monitoring. Speculum removed and procedure was deemed complete. Sponge and instrument count was correct. The patient was transferred to the recovery room in excellent condition. Endometrial curettings were submitted to pathology. Surgical debrief completed.
[2025-04-27] MEDS: ACETAMINOPHEN 500 MG TABLET 1000 MG PO (21:03)
[2025-04-27 21:26] LABS: Hematocrit 39.1 % (33.0-51.0); Hemoglobin* 12.7 gm/dL (12.0-16.0); Mean Corpuscular HGB Conc 33 gm/dL (32-36); Mean Corpuscular Hemoglobin 30 pg (26-34); Mean Corpuscular Volume 91 fL (80-100); Red Blood Count 4.29 m/uL (4.00-5.20); White Blood Count* 10.92 K/uL (4.50-11.00)
[2025-04-27 21:28] LABS: Slide Review Reflex No
[2025-04-27 21:48] LABS: Alanine Aminotransferase* 23 U/L (4-35); Aspartate Amino Transferase* 24 U/L (12-35); Blood Urea Nitrogen* 8 mg/dL (5-24); Creatinine* 0.6 mg/dL (0.5-1.5); Est. Creatinine Clearance* 105.16; Estimated Glomerular Filt Rate 118 ml/min
[2025-04-28] VITALS (7 sets, daily range): BP systolic 102–125; BP diastolic 63–80; PULSE 77–85; RESP 16–19; TEMP 36.5–36.8; O2SAT 92–97
[2025-04-28 03:06] LABS: Hematocrit 39.8 % (33.0-51.0); Hemoglobin* 13.0 gm/dL (12.0-16.0); Mean Corpuscular HGB Conc 33 gm/dL (32-36); Mean Corpuscular Hemoglobin 30 pg (26-34); Mean Corpuscular Volume 91 fL (80-100); Red Blood Count 4.39 m/uL (4.00-5.20); Slide Review Reflex No; White Blood Count* 13.13 K/uL (4.50-11.00)
[2025-04-28 03:46] LABS: Alanine Aminotransferase* 25 U/L (4-35); Aspartate Amino Transferase* 26 U/L (12-35); Blood Urea Nitrogen* 10 mg/dL (5-24); Creatinine* 0.6 mg/dL (0.5-1.5); Est. Creatinine Clearance* 105.16; Estimated Glomerular Filt Rate 118 ml/min
[2025-04-28] MEDS: ACETAMINOPHEN 500 MG TABLET 1000 MG PO ×2 (05:44→14:10)
[2025-04-28] MEDS: LACTATED RINGERS 1000 ML 1,000 ML 75 ML IV (05:52)
--- NOTE | 2025-04-28 08:14 | PM.OBPNVD1 ---
OB - PN:Subj Subjective Date Seen: 04/28/25 Narrative: Brandie is a 39-year-old seen on postop day 1 from a suction D&C in the setting of a delayed hemorrhage. She was admitted due to the new finding of preeclampsia with severe features, given new blood pressure elevations and creatinine of 1.1 on presentation. She had an uncomplicated surgery. Brandie notes she is feeling much better since surgery - specifically she notes her vaginal bleeding has nearly resolved and she has resolution of the former crampy pelvic pain. She notes very minimal pain, well controlled with Tylenol. NSAIDs have been held in the setting of her [place], though her creatinine was noted to normalize overnight to 0.6. Patient had slight nausea overnight, but not denies any nausea/vomiting this morning. Is tolerating p.o. intake and small volumes. Has been up to ambulate without dizziness or lightheadedness. No chest pain or dyspnea. Void spontaneously, passing flatus, no bowel movement yet. Brandie has been tolerating her magnesium infusion well. She notes feeling like her vision is somewhat lagging, but denies any other vision changes to suggest PRINTER MAINTAINER irritability. Has had mild intermittent headache, improved with Tylenol. No right upper quadrant pain. Blood pressures are well controlled on nifedipine XL 30 mg qPM. Her magnesium is running at 1 grams/hour due to [place], do to stop at 5:00 p.m. tonteodora. Explained that ideally, Brandie would be monitored for another night after discontinuation of magnesium. Her blood pressures however have been very well controlled, where her labs have demonstrated interval improvement. Ideally, she would like to discharge to home this evening and understands it would not be until a few hours after mag stopping. Plan to readdress later this evening pending her blood pressure control, serial labs and symptoms. She is meeting all appropriate postoperative milestones for dismissal otherwise. OB - PN: Obj Exam Physical Exam: Vital signs: Temp Pulse Resp BP Pulse Ox O2 Del Method 97.8 F 85 19 102/67 93 Room Air 04/28/25 07:36 04/28/25 07:36 04/28/25 07:36 04/28/25 07:36 04/28/25 07:36 04/28/25 07:36 Narrative: General: Alert and oriented, no acute distress Psych: Appropriate mood and affect Abdomen: Soft, nondistended. Fundus palpates a few cm above the pubic bone, firm. Slight tenderness to palpation, appropriate for postoperative state. No rebound or guarding. Extremities: No significant lower extremity edema. No calf tenderness/erythema. OB - PN: Obj Data Labs Labs: Laboratory Results - last 24 hr 04/27/25 04/27/25 04/28/25 14:50 21:20 02:58 WBC 9.53 10.92 13.13 H RBC 4.05 4.29 4.39 Hgb 12.0 12.7 13.0 Hct 37.5 39.1 39.8 MCV 93 91 91 MCH 30 30 30 MCHC 32 33 33 RDW Coeff of Sandrine 14.0 Plt Count 220 215 247 Neut % (Auto) 71.6 Lymph % (Auto) 18.2 L [place] % (Auto) 6.6 Eos % (Auto) 2.6 Baso % (Auto) 0.2 Neut # (Auto) 6.82 Lymph # (Auto) 1.70 [place] # (Auto) 0.60 Eos # (Auto) 0.25 Baso # (Auto) 0.02 Abs Immat Gran (auto) 0.08 Imm/Tot Granulo (auto) 0.8 Sodium 141 Potassium 4.0 Chloride 110 Carbon Dioxide 25 Anion Gap 6 L BUN 10 8 10 Creatinine 1.1 0.6 0.6 Estimated Creat Clear 57.36 105.16 105.16 Estimated GFR 66 118 118 Glucose 90 Lactate 0.9 Calcium 8.5 Total Bilirubin 0.3 AST 22 24 26 ALT 21 23 25 Alkaline Phosphatase 108 C-Reactive Protein 0.8 Total Protein 6.8 Albumin 4.0 Procalcitonin < 0.03 L Blood Type O Negative Antibody Screen NEGATIVE OB - PN: A/P Delivery Assessment and Plan (1) Pre-eclampsia, severe, delivered: Status: Acute (2) hemorrhage, delayed (> 24 hrs): Status: Acute (3) care following delivery: Status: Acute Plan Brandie is a 39-year-old status post repeat delivery on 04/09 who was readmitted yesterday the new diagnosis of preeclampsia with severe features. She initially presented to care in the setting of significant cramping and vaginal bleeding, where she underwent a suction D&C in the setting of delayed hemorrhage. Etiology of her bleeding is somewhat unclear, though very small volume possible retained tissue was noted at time of suction D&C. My suspicion is otherwise most consistent with possible sub involution of the placental bed, as she has no signs or symptoms of endometritis (constant pelvic pain, significant fundal tenderness, nausea/vomiting, fever/chills, purulent discharge and lab evaluation has been entirely normal). Regardless, her surgery was uncomplicated with a QBL of 150 mL plus some clot that was unmeasured in the specimen canister. She notes her bleeding and cramping have essentially resolved since surgery. Serial labs for preeclampsia have been obtained, demonstrating a stable hemoglobin. Vital signs are within normal limits. She is meeting all appropriate postoperative milestones for dismissal from a surgical perspective. With regard to preeclampsia, Brandie was started on nifedipine XL 30 mg daily yesterday evening. Her blood pressure control has been excellent since that time. She is maintained on magnesium sulfate 1 gram/hour, in the setting of acute kidney injury on admission with a creatinine of 1.1. Serial HELLP labs have demonstrated interval improvement, last creatinine of 0.6. Plan to continue her magnesium at this rate for a total of 24 hours. Given improvement in her creatinine, I did allow for resumption of NSAIDs if needed (though overall her pain has been well controlled). Patient has had mild/intermittent headache that responds to Tylenol, slight vision lagging sensation but no other vision changes to suggest PRINTER MAINTAINER irritability. No right upper quadrant pain. She has 1 more set of q.6 HELLP labs do this afternoon. Disposition is either dismissal to home this evening after at least 24 hours of magnesium and several hours of monitoring thereafter. Ideally, I would recommend she stay overnight for further blood pressure monitoring. That said, if she strongly desires dismissal this can be considered if her blood pressures remain normal, labs continue to be stable and she continues to meet goals. Plan to reassess at about 1700 this evening. If patient is discharged home, explained that she will need to check her blood pressures twice daily and continue nifedipine XL 30 mg q.p.m.. She does have access to a blood pressure cuff with a family member. Discussed strict return precautions for unrelenting headache, vision changes, right upper quadrant pain or any blood pressures are greater than equal to 160/110. If she has values consistently over 140/90 or blood pressures less than 110/70 (or dizziness/lightheadedness), recommend she reach out to clinic triage to discuss revision of her blood pressure regimen. Patient will require a MD visit with blood pressure check later this week. Two week postoperative visit with myself in 2 weeks. Routine 6 week visit.
[2025-04-28 09:09] LABS: Hematocrit 38.4 % (33.0-51.0); Hemoglobin* 12.7 gm/dL (12.0-16.0); Mean Corpuscular HGB Conc 33 gm/dL (32-36); Mean Corpuscular Hemoglobin 30 pg (26-34); Mean Corpuscular Volume 91 fL (80-100); Red Blood Count 4.23 m/uL (4.00-5.20); White Blood Count* 11.80 K/uL (4.50-11.00)
[2025-04-28 09:16] LABS: Slide Review Reflex No
[2025-04-28 09:27] LABS: Alanine Aminotransferase* 26 U/L (4-35); Aspartate Amino Transferase* 23 U/L (12-35); Blood Urea Nitrogen* 10 mg/dL (5-24); Creatinine* 0.6 mg/dL (0.5-1.5); Est. Creatinine Clearance* 105.16; Estimated Glomerular Filt Rate 118 ml/min
[2025-04-28] MEDS: IBUPROFEN 600 MG TABLET PO (09:58)
--- NOTE | 2025-04-28 17:28 | P.DS_ITS ---
DS: Providers Provider Date Seen: 04/28/25 Date of admission: 04/27/25 18:57 Primary care physician: Not a Local Provider Admitting Clinician: Heike Contreras MD Attending Physician on discharge: Heike Contreras MD DS: Diagnosis Discharge Diagnosis (1) Pre-eclampsia, severe, delivered: Status: Acute (2) hemorrhage, delayed (> 24 hrs): Status: Acute (3) care following delivery: Status: Acute Discharge Plan Discharge Disposition: Home, Self-Care Date of Admission: 04/27/25 18:57 Primary Care Provider: Provider,Not a Local Condition: Stable Anticipated Discharge Date/Time: 04/28/25 19:30 Discharge Medications: New nifedipine 30 mg Tablet Extended Release 30 mg PO HS Qty: 30 0RF Continued prenat.vits,balbir,[id number] Tablet 1 tab PO QDAY Discharge Orders: Discharge Order (Routine); Ordered 04/28/25 Ordered By: Heike Contreras Additional Instructions: Discharge instructions were reviewed with the patient including signs and symptoms of infection and home going medications Nothing vaginally for 6 weeks from your initial 04/09 surgery: no tampons or intercourse Symptoms to report to doctor: * Bleeding that saturates more than one pad per hour * Passing clots larger than the size of a golf ball * Pain not relieved by prescribed medication * Fever above 100.4 degrees Fahrenheit * A foul vaginal odor * Any drainage, redness, or tenderness in your IV/epidural site * Severe headache that doesn't improve after taking medications * Changes in vision, including temporary loss of vision, blurred vision, and/or light sensitivity * Upper abdominal pain (usually under ribs on the right side) * Decrease in urination or painful, frequent urinating * Chest pain * Shortness of breath * Tenderness or pain with redness and/swelling in the calf(s) of your leg [facility] BP check 04/30 - 05/02. Clinic will call you to schedule this tomorrow. Call with BP greater than or equal to 160/110 2 week post-op visit with Dr. Contreras 6-week visit for an annual exam. Follow Up Appointments: Provider,Not a Local [Primary Care Provider, Family Practice] Forms: MobileCause Info Instructions Hospital Course Course Hospital Course: Brandie is a 39-year-old status post repeat delivery on 04/09 who was readmitted yesterday the new diagnosis of preeclampsia with severe features. She initially presented to care in the setting of significant cramping and vaginal bleeding, where she underwent a suction D&C in the setting of delayed hemorrhage. No significant retained POC at time of suction D&C (two tiny possible fragments of tissue) where leading suspicion for etiology of bleeding is subinvolution of the placental bed and atony contributing to large clot burden in the YEISON/cervix. Pathology pending. Serial labs for preeclampsia have been obtained, demonstrating a stable hemoglobin. Vital signs are within normal limits. She is meeting all appropriate postoperative milestones for dismissal from a surgical perspective. With regard to preeclampsia, Brandie met criteria by BP elevation and Cr of 1.1. She received 24 hours of magnesium sulfate for seizure prophylaxis, renally dosed. She was started on nifedipine XL 30mg daily with excellent BP response. Serial labs demonstrated interval improvement, Cr on dismissal of 0.6. Explained I would recommend continued observation overnight following discontinuation of magnesium at 1700, however this is challenging to accommodate due to her children at home. Given absent symptoms, excellent BP control, completion of magnesium and low suspicion that she will have acute BP worsening overnight (as 3 weeks from delivery) she elected to dismiss to home tonight after shared decision making. Plan to continue nifedipine XL 30mg daily at bedtime. Recommend close interval BP assessment with MD visit the middle of this week. She has access to a BP cuff at home (family member) and is agreebale to BID BP checks. Discussed strict return precautions for unrelenting headache, vision changes, right upper quadrant pain or any blood pressures are greater than equal to 160/110. If she has values consistently over 140/90 or blood pressures less than 110/70 (or dizziness/lightheadedness), recommend she reach out to clinic triage to discuss revision of her blood pressure regimen. Patient will require a MD visit with blood pressure check later this week. Two week postoperative visit with myself in 2 weeks. Routine 6 week visit. Labs Labs: Laboratory Tests 04/28/25 04/28/25 04/27/25 Range/Units 09:03 02:58 21:20 WBC 11.80 H 13.13 H 10.92 (4.50-11.00) K/uL RBC 4.23 4.39 4.29 (4.00-5.20) m/uL Hgb 12.7 13.0 12.7 (12.0-16.0) gm/dL Hct 38.4 39.8 39.1 (33.0-51.0) % MCV 91 91 91 (80-100) fL MCH 30 30 30 (26-34) pg MCHC 33 33 33 (32-36) gm/dL RDW Coeff of Sandrine (11.5-15.5) % Plt Count 238 247 215 (140-440) K/uL Neut % (Auto) (42.0-72.0) % Lymph % (Auto) (20-44) % Churchill % (Auto) (0.0-11.0) % Eos % (Auto) (0.0-7.0) % Baso % (Auto) (0.0-3.0) % Neut # (Auto) (1.7-7.0) K/uL Lymph # (Auto) (0.90-2.90) K/uL Churchill # (Auto) (0.00-0.90) K/UL Eos # (Auto) (0.00-0.50) K/uL Baso # (Auto) (0.00-0.30) K/uL Abs Immat Gran (auto) (0.00-0.30) K/uL Imm/Tot Granulo (auto) % Sodium (135-149) mmol/L Potassium (3.6-5.1) mmol/L Chloride (96-114) mmol/L Carbon Dioxide (20-32) mmol/L Anion Gap (7-15) mEq/L BUN 10 10 8 (5-24) mg/dL Creatinine 0.6 0.6 0.6 (0.5-1.5) mg/dL Estimated Creat Clear 105.16 105.16 105.16 Estimated GFR 118 118 118 ml/min Glucose (60-115) mg/dL Lactate (0.5-1.9) mmol/L Calcium (8.4-10.6) mg/dL Total Bilirubin (0.1-1.5) mg/dL AST 23 26 24 (12-35) U/L ALT 26 25 23 (4-35) U/L Alkaline Phosphatase (40-150) U/L C-Reactive Protein (0.5-1.0) mg/dL Total Protein (6.0-8.3) g/dL Albumin (3.3-5.0) g/dL Procalcitonin (<0.50) ng/mL Blood Type Antibody Screen 04/27/25 Range/Units 14:50 WBC 9.53 (4.50-11.00) K/uL RBC 4.05 (4.00-5.20) m/uL Hgb 12.0 (12.0-16.0) gm/dL Hct 37.5 (33.0-51.0) % MCV 93 (80-100) fL MCH 30 (26-34) pg MCHC 32 (32-36) gm/dL RDW Coeff of Sandrine 14.0 (11.5-15.5) % Plt Count 220 (140-440) K/uL Neut % (Auto) 71.6 (42.0-72.0) % Lymph % (Auto) 18.2 L (20-44) % Churchill % (Auto) 6.6 (0.0-11.0) % Eos % (Auto) 2.6 (0.0-7.0) % Baso % (Auto) 0.2 (0.0-3.0) % Neut # (Auto) 6.82 (1.7-7.0) K/uL Lymph # (Auto) 1.70 (0.90-2.90) K/uL Churchill # (Auto) 0.60 (0.00-0.90) K/UL Eos # (Auto) 0.25 (0.00-0.50) K/uL Baso # (Auto) 0.02 (0.00-0.30) K/uL Abs Immat Gran (auto) 0.08 (0.00-0.30) K/uL Imm/Tot Granulo (auto) 0.8 % Sodium 141 (135-149) mmol/L Potassium 4.0 (3.6-5.1) mmol/L Chloride 110 (96-114) mmol/L Carbon Dioxide 25 (20-32) mmol/L Anion Gap 6 L (7-15) mEq/L BUN 10 (5-24) mg/dL Creatinine 1.1 (0.5-1.5) mg/dL Estimated Creat Clear 57.36 Estimated GFR 66 ml/min Glucose 90 (60-115) mg/dL Lactate 0.9 (0.5-1.9) mmol/L Calcium 8.5 (8.4-10.6) mg/dL Total Bilirubin 0.3 (0.1-1.5) mg/dL AST 22 (12-35) U/L ALT 21 (4-35) U/L Alkaline Phosphatase 108 (40-150) U/L C-Reactive Protein 0.8 (0.5-1.0) mg/dL Total Protein 6.8 (6.0-8.3) g/dL Albumin 4.0 (3.3-5.0) g/dL Procalcitonin < 0.03 L (<0.50) ng/mL Blood Type O Negative Antibody Screen NEGATIVE OB Problem List Additional Plan (1) Pre-eclampsia, severe, delivered: Status: Acute (2) hemorrhage, delayed (> 24 hrs): Status: Acute (3) care following delivery: Status: Acute DS: Summary Vital Signs Vital Signs: Vital Signs Temp Pulse Pulse Resp BP BP Pulse Ox 04/28/25 16:18 98.0 F 81 17 109/73 93 04/28/25 12:00 98.2 F 82 17 107/70 93 04/28/25 07:36 97.8 F 85 19 102/67 93 04/28/25 05:43 97.8 F 77 16 111/74 92 04/28/25 03:06 84 16 112/63 94 04/28/25 01:09 84 18 125/80 93 04/27/25 23:03 98.1 F 98 16 133/81 96 04/27/25 20:37 78 141/91 H 04/27/25 20:22 78 134/91 H 04/27/25 20:07 128/87 04/27/25 19:52 82 123/66 04/27/25 19:39 98.3 F 81 16 149/97 H 96 04/27/25 19:37 81 129/91 H 04/27/25 19:22 81 149/97 H 04/27/25 19:08 78 133/76 04/27/25 18:52 93 132/85 04/27/25 18:52 98.3 F 92 132/85 04/27/25 18:42 113/69 16 L 04/27/25 17:46 80 139/95 H 96 04/27/25 17:45 80 96 04/27/25 17:32 72 130/89 96 04/27/25 17:30 70 96 O2 Del Method 04/28/25 16:18 Room Air 04/28/25 12:00 Room Air 04/28/25 07:36 Room Air 04/28/25 05:43 Room Air 04/28/25 03:06 Room Air 04/28/25 01:09 Room Air 04/27/25 23:03 Room Air 04/27/25 20:37 04/27/25 20:22 04/27/25 20:07 04/27/25 19:52 04/27/25 19:39 Room Air 04/27/25 19:37 04/27/25 19:22 04/27/25 19:08 04/27/25 18:52 04/27/25 18:52 04/27/25 18:42 04/27/25 17:46 04/27/25 17:45 04/27/25 17:32 04/27/25 17:30 Procedures Procedures Performed: Suction D&C on 04/27
== END 2025-04-28 20:00 | disposition home or self-care (01) | DRG 544 ==
LOC: ED 17:10 → SS 17:55 → OB 04-28 17:35
PROVIDERS: Admitting Provider Obstetrics & Gynecology; Emergency Provider Family Medicine; Visit Provider Obstetrics & Gynecology
PROC: 10D17ZZ Extraction of Products of Conception, Retained, Via Natural or Artificial Opening (ICD-10-PCS; principal; 2025-04-27 07:30)
DX: O72.2 Delayed and secondary postpartum hemorrhage (principal); O14.15 Severe pre-eclampsia, complicating the puerperium
CPT/HCPCS: 36415; 76830; 80053; 82565; 83605; 84145; 84450; 84460; 84520; 85025; 85027; 86140; 86850; 86900; 86901; 99284; 99285; A9270; J0665; J1100; J1630; J1885; J2405; J2590; J2704; J3010; J3475; J3490; J7120